=== PATIENT | male | born 1950 | race African-American/Black ===

== ENCOUNTER 2017-02-12 07:49 | Day surgery (SDC) | payer OTHER ==
[2017-02-11 15:07] VITALS: BMI 33.0
[2017-02-12] MEDS ORDERED: LIDOCAINE HCL/PF 2% SDV 5ML VIAL ONE (08:28)
[2017-02-12] MEDS ORDERED: PROPOFOL 20 ML ONE ×3 (08:28)
[2017-02-12 09:00] VITALS: TEMP 98
[2017-02-12 10:08] VITALS: BP 132/75; PULSE 70
== END 2017-02-12 09:50 | disposition home or self-care (01) ==
LOC: JASU-ENDO 07:49
PROVIDERS: ATTEND Internal Medicine Gastroenterology
PROC: 0DJD8ZZ Inspection of Lower Intestinal Tract, Via Natural or Artificial Opening Endoscopic (ICD-10-PCS; principal; 2017-02-12 09:00)
DX: Z12.11 Encounter for screening for malignant neoplasm of colon (principal); Z86.010 Personal history of colon polyps; K57.30 Diverticulosis of large intestine without perforation or abscess without bleeding

== ENCOUNTER → 2017-03-22 | Day surgery (SDC) | payer OTHER ==
[~2017-03-22] MED LIST: BUPIVACAINE HCL/PF 0.5% (5MG/ML) 10 ML VIAL NR ONE
[2017-03-22 10:53] LABS: BASOPHIL 0.7 % (0-2.0); EOSINOPHIL 3.2 % (0-4.5); MCH 33.6 pg (25.7-33.7); MEAN CELL VOLUME 101.9 fl (80-96); MEAN PLT VOLUME 8.8 fl (7.5-11.1); PLATELET COUNT 197 K/MM3 (134-434); RDW 13.6 % (11.9-15.9); WHITE BLOOD COUNT 8.7 K/mm3 (4.0-10.0)
[2017-03-22 11:07] LABS: INR 1.03 (0.82-1.09); PROTHROMBIN TIME (PATIENT) 11.3 SEC (9.98-11.88)
[2017-03-22 12:10] LABS: ERYTHROCYTE SEDIMENTATION RATE 50 mm/hr (0-20)
== END | disposition home or self-care (01) ==
LOC: JRADIR 10:09
PROVIDERS: ATTEND Orthopaedic Surgery
PROC: 0S993ZZ Drainage of Right Hip Joint, Percutaneous Approach (ICD-10-PCS; principal; 2017-03-22)
DX: M25.551 Pain in right hip (principal)
CPT/HCPCS: 27093; 36415; 73502-TC-RT; 73525-TC; 76000-TC; 85025; 85610; 85651; 86140

== ENCOUNTER → 2017-04-02 | Day surgery (SDC) | payer OTHER | END | disposition home or self-care (01) | LOC: JRADIR 09:32 | PROVIDERS: ATTEND Orthopaedic Surgery | PROC: 0S993ZZ Drainage of Right Hip Joint, Percutaneous Approach (ICD-10-PCS; principal; 2017-04-02) | PROC: BW111ZZ Fluoroscopy of Abdomen and Pelvis using Low Osmolar Contrast (ICD-10-PCS; 2017-04-02) | DX: M25.551 Pain in right hip (principal); Z96.641 Presence of right artificial hip joint | CPT/HCPCS: 20610; 76000-TC; 76098-TC; 87070; 87075; 87205; 87899 ==

== ENCOUNTER 2017-09-26 18:15 | Inpatient (IN) | payer OTHER ==
--- NOTE | 2017-09-26 18:30 | PDOC ---
Rapid Medical Evaluation Time Seen by Provider: 09/26/17 18:24 Medical Evaluation: Allergies Allergy/AdvReac Type Severity Reaction Status Date / Time quinapril HCl [From Accupril] Allergy Intermediate Verified 09/26/17 18:24 09/26/17 18:28 The patient presents with a chief complaint of: vomiting blood, dark stools, daily rum drinker, denies varices, ulcer, feels weak and dizzy I have performed a brief in-person evaluation of this patient. Pertinent physical exam findings: bp 101/57 I have ordered the following: cbc, comp, type and screen, pt/inr, guiac stool, iv , ekg, ivf The patient will proceed to the ED for further evaluation. Discharge Disposition - Diagnosis Dark stools Vomiting blood Qualifiers: Nausea presence: with nausea Qualified Code(s): K92.0 - Hematemesis - Discharge Dispostion Condition at time of disposition: Guarded - Referrals - Patient Instructions - Post Discharge Activity
[2017-09-26] MEDS ORDERED: PANTOPRAZOLE SODIUM 40 MG in SODIUM CHLORIDE 100 ML IVPB ONE (18:31)
[2017-09-26] MEDS ORDERED: SODIUM CHLORIDE 1,000 ML IV STA (18:31)
[2017-09-26 18:52] LABS: BASOPHIL 0.7 % (0-2.0); EOSINOPHIL 0.4 % (0-4.5); MCH 30.3 pg (25.7-33.7); MCHC 32.7 g/dl (32.0-35.9); MEAN CELL VOLUME 92.6 fl (80-96); MEAN PLT VOLUME 8.1 fl (7.5-11.1); PLATELET COUNT 224 K/MM3 (134-434); RDW 17.9 % (11.9-15.9); WHITE BLOOD COUNT 10.7 K/mm3 (4.0-10.0)
[2017-09-26 19:10] LABS: INR 1.05 (0.82-1.09); PROTHROMBIN TIME (PATIENT) 11.9 SEC (9.98-11.88)
[2017-09-26 19:20] LABS: ALBUMIN 3.4 g/dl (3.4-5.0); ANION GAP 8 (8-16); BILIRUBIN,TOTAL 0.3 mg/dL (0.2-1.0); CALCIUM 8.8 mg/dL (8.5-10.1); CO2 24 mmol/L (21-32); CREATININE 1.4 mg/dL (0.7-1.3); GLUCOSE,RANDOM 116 mg/dL (74-106); SGOT/AST 65 U/L (15-37); SGPT/ALT 37 U/L (12-78); TOT PROT 6.8 g/dl (6.4-8.2)
[2017-09-26 19:21] LABS: ALK PHOS 137 U/L (45-117)
--- NOTE | 2017-09-26 19:38 | PDOC ---
History of Present Illness - General History Source: Patient Exam Limitations: No Limitations - History of Present Illness Initial Comments: 09/26/17 19:53 The patient is a 67 year old male with history of hypertension, hyperlipidemia, HIV (undetectable VL), GERD, on ASA and Plavix, and daily alcohol consumption ( reports 2 drinks/day) who presents to the ED complaining of nausea, abdominal discomfort, melena, and bright red hematemesis that began this evening. He also reports associated lightheadedness. He states he was feeling fine this evening at work when he suddenly developed his symptoms. No chest pain or shortness of breath. No fever or chills. He has never experienced this before. The patient reports he is currently taking part of a clinical trial for Rapatha for his hyperlipidemia. PCP: Dr. Yeung ID: Dr. Laboy <Gail Malin - Last Filed: 09/26/17 21:51> <Iwona Markham - Last Filed: 09/26/17 21:53> - General Chief Complaint: Vomiting Blood Stated Complaint: NAUSEA/VOMITING Time Seen by Provider: 09/26/17 18:24 Past History <Gail Malin - Last Filed: 09/26/17 21:51> - Past Medical History Cardiac Disorders: Yes (ASHD,ME) COPD: No GI Disorders: Yes (GERD;COLON ADENOMAS;DIVERTICULOSIS) HTN: Yes Hypercholesterolemia: Yes Kidney Stones: Yes Liver Disease: (STAGE 1 STATOHEPATITIS ALCOHOLIC / ABDULLAHI 2007) - Surgical History Abdominal Surgery: (UMBILICAL HERNIA REPAIR) Appendectomy: Yes (LAP) Cardiac Surgery: Yes (7 CABG 2007;STENT 2001) Orthopedic Surgery: Yes (qasim knee replacements; RIGHT HIP REPLACEMENT) - Immunization History Immunization Up to Date: Yes - Suicide/Smoking/Psychosocial Hx Smoking Status: No Smoking History: Former smoker Have you smoked in the past 12 months: No Number of Cigarettes Smoked Daily: 0 If you are a former smoker, when did you quit?: 10yrs Information on smoking cessation initiated: No Hx Alcohol Use: No Drug/Substance Use Hx: No Substance Use Type: None Hx Substance Use Treatment: No <Iwona Markham - Last Filed: 09/26/17 21:53> - Past Medical History Allergies/Adverse Reactions: Allergies Allergy/AdvReac Type Severity Reaction Status Date / Time quinapril HCl [From Accupril] Allergy Intermediate Verified 09/26/17 18:26 Home Medications: Ambulatory Orders Amlodipine Besylate [Norvasc -] 5 mg PO DAILY #0 tablet 05/29/13 Aspirin [ASA -] 81 mg PO HS #0 tab.chew 05/29/13 Clopidogrel Bisulfate [Plavix -] 75 mg PO DAILY 06/27/14 Abacavir/Dolutegravir/Lamivudi [Triumeq Tablet] 1 each PO DAILY 02/11/17 Allopurinol [Zyloprim -] 100 mg PO DAILY 02/11/17 Escitalopram Oxalate [Lexapro -] 10 mg PO DAILY 02/11/17 Furosemide [Lasix -] 80 mg PO DAILY 02/11/17 Gabapentin 300 mg PO BID 02/11/17 Olmesartan Medoxomil [Benicar -] 40 mg PO DAILY 02/11/17 Pitavastatin Calcium [Livalo] 1 mg PO DAILY 02/11/17 Potassium Chloride 8 meq PO DAILY 02/11/17 Ranitidine [Zantac -] 150 mg PO BID 02/11/17 Triamcinolone Acetonide 1 applic TP DAILY 02/11/17 Garlic [Odorless Garlic] 300 mg PO DAILY 02/12/17 Review of Systems - Review of Systems Able to Perform ROS?: Yes Comments:: 09/26/17 20:52 GENERAL/CONSTITUTIONAL: No fever or chills. No weakness. HEAD, EYES, EARS, NOSE AND THROAT: No change in vision. No ear pain or discharge. No sore throat. GASTROINTESTINAL: +Nausea, hematemesis x 5, melena, epigastric discomfort. No diarrhea. GENITOURINARY: No dysuria, frequency, or change in urination. CARDIOVASCULAR: +lightheadedness. No chest pain or shortness of breath. RESPIRATORY: No cough, wheezing, or hemoptysis. MUSCULOSKELETAL: No joint or muscle swelling or pain. No neck or back pain. SKIN: No rash NEUROLOGIC: No vertigo, loss of consciousness, or change in strength/sensation. ENDOCRINE: No increased thirst. No abnormal weight change. HEMATOLOGIC/LYMPHATIC: No anemia, easy bleeding, or history of blood clots. ALLERGIC/IMMUNOLOGIC: No hives or skin allergy. <Gail Malin - Last Filed: 09/26/17 21:51> *Physical Exam - Vital Signs Last Vital Signs Temp Pulse Resp BP Pulse Ox 97.5 F L 88 17 101/57 99 09/26/17 18:27 09/26/17 18:27 09/26/17 18:27 09/26/17 18:27 09/26/17 18:27 - Physical Exam Comments: 09/26/17 20:54 Constitutional: Awake, alert, oriented. No acute distress. Head: Normocephalic. Atraumatic Eyes: PERRL. EOMI. Conjunctivae are not pale. ENT: Mucous membranes are moist and intact. Posterior pharynx without exudates or erythema. Uvula midline. Neck: Supple. Full ROM. No lymphadenopathy. Cardiovascular: Regular rate. Regular rhythm. S1, S2 regular. Distal pulses are 2+ and symmetric. Pulmonary/Chest: No evidence of respiratory distress. Clear to auscultation bilaterally No wheezing, rales or rhonchi. Abdominal: +Mild epigastric tenderness. Soft and non-distended. No rebound, guarding or rigidity. No organomegaly. No palpable masses. Good bowel sounds. Back: No CVA tenderness. Musculoskeletal: No edema. No cyanosis. No clubbing. Full range of motion in all extremities. No calf tenderness. Radial/pedal pulses are intact and 2+ bilaterally Skin: Skin is warm and dry. No petechiae. No purpura. Neurological: Alert and oriented to person, place, and time. Cranial nerves II -XII are grossly intact. Normal speech. Strength is grossly symmetric. No sensory deficits. Psychiatric: Good eye contact. Normal interaction, affect and behavior. Rectal: No hemorrhoids or tears. Dark stool which is heme positive. <Gail Malin - Last Filed: 09/26/17 21:51> - Vital Signs Last Vital Signs Temp Pulse Resp BP Pulse Ox 97.5 F L 88 17 101/57 99 09/26/17 18:27 09/26/17 18:27 09/26/17 18:27 09/26/17 18:27 09/26/17 18:27 <Iwona Markham - Last Filed: 09/26/17 21:53> Heart Score/ECG Review - ECG Intrepretation Comment:: 09/26/17 21:47 sinus at 82, L axis, no acute st/t wave findings <Iwona Markham - Last Filed: 09/26/17 21:53> ED Treatment Course - LABORATORY CBC & Chemistry Diagram: 09/26/17 18:38 09/26/17 18:38 - ADDITIONAL ORDERS Additional order review: Laboratory Results 09/26/17 09/26/17 18:38 18:38 PT with INR 11.90 H INR 1.05 Sodium 143 Potassium 5.1 D Chloride 111 H Carbon Dioxide 24 Anion Gap 8 BUN 32 H D Creatinine 1.4 H D Creat Clearance w eGFR 50.40 Random Glucose 116 H Calcium 8.8 Total Bilirubin 0.3 D AST 65 H ALT 37 Alkaline Phosphatase 137 H D Total Protein 6.8 Albumin 3.4 D 09/26/17 18:38 RBC 3.87 L MCV 92.6 MCHC 32.7 RDW 17.9 H D MPV 8.1 Neutrophils % 79.0 D Lymphocytes % 12.6 D Monocytes % 7.3 Eosinophils % 0.4 D Basophils % 0.7 <Gail Malin - Last Filed: 09/26/17 21:51> - LABORATORY CBC & Chemistry Diagram: 09/26/17 18:38 09/26/17 18:38 - ADDITIONAL ORDERS Additional order review: Laboratory Results 09/26/17 18:38 Sodium 143 Potassium 5.1 D Chloride 111 H Carbon Dioxide 24 Anion Gap 8 BUN 32 H D Creatinine 1.4 H D Creat Clearance w eGFR 50.40 Random Glucose 116 H Calcium 8.8 Total Bilirubin 0.3 D AST 65 H ALT 37 Alkaline Phosphatase 137 H D Total Protein 6.8 Albumin 3.4 D 09/26/17 18:38 RBC 3.87 L MCV 92.6 MCHC 32.7 RDW 17.9 H D MPV 8.1 Neutrophils % 79.0 D Lymphocytes % 12.6 D Monocytes % 7.3 Eosinophils % 0.4 D Basophils % 0.7 <Iwona Markham - Last Filed: 09/26/17 21:53> Medical Decision Making - Medical Decision Making 09/26/17 21:10 a/p: 67yo male with UGIB -labs -type and screen -2 large bore iv -heme +stool -will start protonix 09/26/17 21:26 hgb stable, but down 2g from baseline concern given GI bleeding pt is in a clinical trial at [facility] and getting an IM injection, but unsure which medication call placed to the nurse of the clinical trial at [phone], left message 09/26/17 21:35 case discussed with clinical trial nurse, pt is getting repatha injections 09/26/17 21:47 case discussed with Smitha ROMERO who accepts pt to service. <Iwona Markham - Last Filed: 09/26/17 21:53> *DC/Admit/Observation/Transfer - Attestations Scribe Attestion: 09/26/17 20:40 Documentation prepared by Gail Malin, acting as medical assisting program director for Iwona Markham DO. <Gail Malin - Last Filed: 09/26/17 21:51> - Discharge Dispostion Admit: Yes - Attestations Physician Attestion: 09/26/17 21:53 I, Dr. Iwona Markham DO, attest that this document has been prepared under my direction and personally reviewed by me in its entirety. I further attest, that it accurately reflects all work, treatment, procedures and medical decision -making performed by me. <Iwona Markham - Last Filed: 09/26/17 21:53> Diagnosis at time of Disposition: Dark stools, Vomiting blood - Discharge Dispostion Condition at time of disposition: Guarded - Referrals Referrals: Jose Yeung MD [Primary Care Provider] - - Patient Instructions - Post Discharge Activity
[2017-09-26] MEDS ORDERED: PANTOPRAZOLE SODIUM 40 MG/100 ML BAG IVPB ONE (19:43)
[2017-09-26] MEDS ORDERED: ONDANSETRON 4 MG/2 ML VIAL IVPUSH ONE (19:49)
[2017-09-26] MEDS ORDERED: SODIUM CHLORIDE 0.9% 1000 ML INFUS.BAG IV ONE (21:42)
[2017-09-26] MEDS ORDERED: MAGNESIUM SULF 50% (8.12 MEQ/2 ML-1 GM VIAL) IVPB ONE (22:14)
--- NOTE | 2017-09-26 23:01 | HP ---
CHIEF COMPLAINT: vomiting blood PCP: Gamal HISTORY OF PRESENT ILLNESS: This is 67 year old male with a past medical history as below on ASA, plavix and celebrex, daily alcohol drinker, who presented to the ED after one episode vomiting bright red blood. Pt states that he began to feel unwell: nauseas, lightheaded while driving to work and then he vomited shortly after arriving to work. He describes the episode as prolonged, "it just kept coming," and states that it was bright red. Pt reports shortly after that he felt like he had to have a BM and he had a loose black stool. He also reports that his usual daily stool earlier in the day was black. He states that yesterday it was normal. He notices that he has not had a good appetite for the past few days and has been getting SOB with walking. He denies CP, palpitations, orthopnea. ER course was notable for: (1) Hgb 11.7 (2) BUN/Cr 32/1.4 (3) lactic acid 2.3 Recent Travel: pt denies PAST MEDICAL HISTORY: HTN, HLD, CAD/IA, HIV, GERD, cholelithiasis, colon adenoma, diverticulosis, fatty liver, renal calculi, BPH, gout PAST SURGICAL HISTORY: CABG, 7v, 2008 stents 2002 B/L TKR R THR umbilical hernia repair appendectomy Social History: works as a teen counselor Smoking: pt denies, quit 10y ago Alcohol: daily 2-3 drinks Drugs: pt denies Family History: mother age 67, emphesema, had heart disease, denies IA father 60s, ETOH sister with polio 8 siblings, all with DM/HLD one brother , drug OD Allergies quinapril HCl [From Accupril] Allergy (Intermediate, Verified 09/26/17 18:26) nosebleeds HOME MEDICATIONS: 3 Medication Instructions Recorded Amlodipine Besylate [Norvasc -] 5 mg PO DAILY #0 tablet 05/29/13 Aspirin [ASA -] 81 mg PO HS #0 tab.chew 05/29/13 Clopidogrel Bisulfate [Plavix -] 75 mg PO DAILY 06/27/14 Abacavir/Dolutegravir/Lamivudi 1 each PO DAILY 02/11/17 [Triumeq Tablet] Allopurinol [Zyloprim -] 100 mg PO DAILY 02/11/17 Escitalopram Oxalate [Lexapro -] 10 mg PO DAILY 02/11/17 Furosemide [Lasix -] 40 mg PO Q2D 02/11/17 Gabapentin 300 mg PO BID 02/11/17 Olmesartan Medoxomil [Benicar -] 40 mg PO DAILY 02/11/17 Pitavastatin Calcium [Livalo] 1 mg PO DAILY 02/11/17 Ranitidine [Zantac -] 150 mg PO DAILY 02/11/17 Triamcinolone Acetonide 1 applic TP DAILY 02/11/17 Celecoxib [Celebrex] 200 mg PO DAILY 09/26/17 Furosemide [Lasix -] 20 mg PO Q2D 09/26/17 Metoprolol Succinate [Toprol Xl -] 25 mg PO HS 09/26/17 Tamsulosin HCl [Flomax] 0.4 mg PO DAILY 09/26/17 REVIEW OF SYSTEMS CONSTITUTIONAL: Present: generalized weakness Absent: fever, chills, diaphoresis, malaise, loss of appetite, weight change HEENT: Absent: rhinorrhea, nasal congestion, throat pain, throat swelling, difficulty swallowing, mouth swelling, ear pain, eye pain, visual changes CARDIOVASCULAR: Absent: chest pain, syncope, palpitations, irregular heart rate, lightheadedness , peripheral edema RESPIRATORY: Present: dyspnea with exertion Absent: cough, shortness of breath, orthopnea, wheezing, stridor, hemoptysis GASTROINTESTINAL: Present: nausea, vomiting, melena Absent: abdominal pain, abdominal distension, diarrhea, constipation, hematochezia GENITOURINARY: Absent: dysuria, frequency, urgency, hesitancy, hematuria, flank pain, genital pain MUSCULOSKELETAL: Absent: myalgia, arthralgia, joint swelling, back pain, neck pain SKIN: Absent: rash, itching, pallor HEMATOLOGIC/IMMUNOLOGIC: Absent: easy bleeding, easy bruising, lymphadenopathy, frequent infections ENDOCRINE: Absent: unexplained weight gain, unexplained weight loss, heat intolerance, cold intolerance NEUROLOGIC: Absent: headache, focal weakness or paresthesias, dizziness, unsteady gait, seizure, mental status changes, bladder or bowel incontinence PSYCHIATRIC: Absent: anxiety, depression, suicidal or homicidal ideation, hallucinations. PHYSICAL EXAMINATION Vital Signs - 24 hr 3 09/26/17 09/26/17 18:27 22:18 Temperature 97.5 F L Pulse Rate 88 Pulse Rate [ 78 Sitting] Pulse Rate [ 86 Standing] Pulse Rate [ 66 Supine] Respiratory 17 Rate Blood Pressure 101/57 Blood Pressure 139/97 [Sitting] Blood Pressure 144/81 [Standing] Blood Pressure 149/75 [Supine] O2 Sat by Pulse 99 Oximetry (%) GENERAL: Awake, alert, and fully oriented, in no acute distress. HEAD: Normal with no signs of trauma. EYES: Pupils equal, round and reactive to light, extraocular movements intact, sclera anicteric, conjunctiva clear. No lid lag. EARS, NOSE, THROAT: Ears normal, nares patent, oropharynx clear without exudates. Moist mucous membranes. NECK: Normal range of motion, supple without lymphadenopathy, JVD, or masses. LUNGS: Breath sounds equal, fine bibasilar crackles noted. No wheezes. No accessory muscle use. HEART: Regular rate and rhythm, normal S1 and S2 without murmur, rub or gallop. ABDOMEN: Soft, tender on deep palpation LLQ, not distended, normoactive bowel sounds, no guarding, no rebound, no masses. No hepatomegaly or splenomegaly. MUSCULOSKELETAL: Normal range of motion at all joints. No bony deformities or tenderness. No CVA tenderness. UPPER EXTREMITIES: 2+ pulses, warm, well-perfused. No cyanosis. No clubbing. No peripheral edema. LOWER EXTREMITIES: 2+ pulses, warm, well-perfused. No calf tenderness. No peripheral edema. NEUROLOGICAL: Cranial nerves II-XII intact. Normal speech. Normal gait. PSYCHIATRIC: Cooperative. Good eye contact. Appropriate mood and affect. SKIN: Warm, dry, normal turgor, no rashes or lesions noted, normal capillary refill. Laboratory Results - last 24 hr 3 09/26/17 09/26/17 09/26/17 09/26/17 09/26/17 18:38 18:38 18:38 19:49 21:00 WBC 10.7 H RBC 3.87 L Hgb 11.7 D Hct 35.9 MCV 92.6 MCH 30.3 MCHC 32.7 RDW 17.9 H D Plt Count 224 MPV 8.1 Neutrophils % 79.0 D Lymphocytes % 12.6 D Monocytes % 7.3 Eosinophils % 0.4 D Basophils % 0.7 PT with INR 11.90 H INR 1.05 Sodium 143 Potassium 5.1 D Chloride 111 H Carbon Dioxide 24 Anion Gap 8 BUN 32 H D Creatinine 1.4 H D Creat Clearance w eGFR 50.40 Random Glucose 116 H Lactic Acid 2.3 H* Calcium 8.8 Magnesium 1.6 L Total Bilirubin 0.3 D AST 65 H ALT 37 Alkaline Phosphatase 137 H D Total Protein 6.8 Albumin 3.4 D Stool Occult Blood Positive Blood Type A POSITIVE Antibody Screen Negative ECG NSR Vent rate 82, QTC 441 nonspecific T wave abnormality, present on old ECG Left axis deviation, present on old ECG ASSESSMENT/PLAN: 67yM with PMH HTN, HLD, CAD/IA, HIV, GERD, cholelithiasis, colon adenoma, diverticulosis, fatty liver, renal calculi, BPH, gout presented to the ED after one episode vomiting blood and 2 episodes melena. GI bleed - NPO except meds - repeat CBC after 2nd liter IVF - GI consult - transfuse if symptomatic and Hgb less than 9 given cardiac history - defer further IVF for now unless further episodes hematemesis - protonix 40mg IV BID CAD - will hold ASA/Plavix given active bleeding - cardiology consult HTN - hold tonight toprol dose, restart home meds in am, hold if SBP less than 100 HLD - home statin changed to formulary lipitor - pt is in a clinical trial for HLD, taking repatha SC, ED discussed current symptoms with study nurse who does not feel this is related to study drug HIV - cont home meds DVT PPX - deferred due to active bleeding FEN - hold further IVF for now, received 2L in ED - BMP in am - NPO Dispo: Pt currently requires further observation for management of his emergent condition. Addendum 09/27/17 3am: repeat CBC with HGB 8.2, given cardiac history will transfuse 1u and repeat CBC after completes. Visit type - Emergency Visit Emergency Visit: Yes ED Registration Date: 09/26/17 Care time: The patient presented to the Emergency Department on the above date and was hospitalized for further evaluation of their emergent condition. - New Patient This patient is new to me today: Yes Date on this admission: 09/26/17 - Critical Care Critical Care patient: No
[2017-09-26] MEDS ORDERED: ONDANSETRON 4 MG/2 ML VIAL IVPUSH PRN (23:06)
[2017-09-27] MEDS ORDERED: MAGNESIUM SULF 50% (8.12 MEQ/2 ML-1 GM VIAL) ONE (00:03)
[2017-09-27 01:43] LABS: BASOPHIL 0.7 % (0-2.0); EOSINOPHIL 0.6 % (0-4.5); MCH 30.3 pg (25.7-33.7); MCHC 32.5 g/dl (32.0-35.9); MEAN CELL VOLUME 93.1 fl (80-96); MEAN PLT VOLUME 8.5 fl (7.5-11.1); NEUTROPHILS 65.5 % (42.8-82.8); PLATELET COUNT 152 K/MM3 (134-434); RDW 17.5 % (11.9-15.9); WHITE BLOOD COUNT 8.4 K/mm3 (4.0-10.0)
[2017-09-27 08:01] VITALS: BMI 32.1
[2017-09-27] MEDS: VALSARTAN 160 MG TABLET (UD) PO SCH (09:56)
[2017-09-27] MEDS: ALLOPURINOL 100 MG TABLET (FP) PO SCH (09:57)
[2017-09-27] MEDS: amLODIPine BESYLATE 5 MG TABLET (FP) PO SCH (09:57)
[2017-09-27] MEDS ORDERED: FUROSEMIDE 40 MG TABLET (FP) PO SCH (10:00)
--- NOTE | 2017-09-27 10:24 | EKG ---
Test Reason : Blood Pressure : / mmHG Vent. Rate : 082 BPM Atrial Rate : 082 BPM P-R Int : 174 ms QRS Dur : 090 ms QT Int : 378 ms P-R-T Axes : 033 -33 -05 degrees QTc Int : 441 ms NORMAL SINUS RHYTHM LEFT AXIS DEVIATION T WAVE ABNORMALITY, CONSIDER ANTERIOR ISCHEMIA ABNORMAL ECG Confirmed by MD JESSIE, JOSIAH ([id number]) on 09/27/2017 10:24:06 AM Referred By: Confirmed By:JOSIAH ROMAN MD
--- NOTE | 2017-09-27 10:58 | PN ---
Progress Note, Physician Chief Complaint: Mr Dickens says he feels much better now and is without complaint. No cp, sob, n /v. No current hematemesis. - Current Medication List Current Medications: Active Medications Allopurinol (Zyloprim -) 100 mg PO DAILY [facility] Last Admin: 09/27/17 09:57 Dose: 100 mg Amlodipine Besylate (Norvasc -) 5 mg PO DAILY [facility] Last Admin: 09/27/17 09:57 Dose: 5 mg Atorvastatin Calcium (Lipitor -) 10 mg PO HS MARGOTH Furosemide (Lasix -) 20 mg PO Q2D MARGOTH Furosemide (Lasix -) 40 mg PO Q2D [facility] Last Admin: 09/27/17 09:57 Dose: 40 mg Gabapentin (Neurontin -) 300 mg PO BID MARGOTH Metoprolol Succinate (Toprol Xl -) 25 mg PO HS [facility] Non-Formulary Medication (Abacavir/Dolutegravir/Lamivudi [Triumeq Tablet]) 1 each PO DAILY [facility] Last Admin: 09/27/17 09:56 Dose: 1 each Ondansetron HCl (Zofran Injection) 4 mg IVPUSH Q6H PRN PRN Reason: NAUSEA Tamsulosin HCl (Flomax -) 0.4 mg PO DAILY [facility] Valsartan (Diovan -) 320 mg PO DAILY [facility] Last Admin: 09/27/17 09:56 Dose: 320 mg - Objective Vital Signs: Vital Signs Temperature 36.9 C 09/27/17 06:00 Pulse Rate 68 09/27/17 06:00 Respiratory Rate 18 09/27/17 06:00 Blood Pressure 147/78 09/27/17 06:00 O2 Sat by Pulse Oximetry (%) 98 09/27/17 02:05 Constitutional: Yes: Well Nourished, No Distress, Calm Cardiovascular: Yes: Regular Rate and Rhythm. No: Gallop, Murmur, Rub Respiratory: Yes: Regular, CTA Bilaterally. No: Rales, Rhonchi, Wheezes Gastrointestinal: Yes: Normal Bowel Sounds, Soft. No: Distention, Tenderness Extremities: Yes: WNL Edema: No Labs: INR, PTT INR 1.05 (0.82-1.09) 09/26/17 18:38 Problem List - Problems (1) Hematemesis/vomiting blood Assessment/Plan: -patient presents with hematemesis -currently resolved -concerning since with alcohol consumption -case d/w GI -planning for endoscopy today -continue PPI and octreotide Code(s): K92.0 - HEMATEMESIS Qualifiers: Nausea presence: with nausea Qualified Code(s): K92.0 - Hematemesis (2) ARF (acute renal failure) Assessment/Plan: -improved with IVF and transfusion of 1 unit pRBCs Code(s): N17.9 - ACUTE KIDNEY FAILURE, UNSPECIFIED (3) Hyperlipidemia Assessment/Plan: -continue statin Code(s): E78.5 - HYPERLIPIDEMIA, UNSPECIFIED (4) Hypertension Assessment/Plan: -continue norvasc, toprol, and ARB -holding lasix Code(s): I10 - ESSENTIAL (PRIMARY) HYPERTENSION (5) HIV (human immunodeficiency virus infection) Assessment/Plan: -continue triple therapy Code(s): Z21 - ASYMPTOMATIC HUMAN IMMUNODEFICIENCY VIRUS INFECTION STATUS (6) CAD (coronary artery disease) Assessment/Plan: -cardiology following and case discussed -ok to go to aspirin only -continue ARB, beta aniceto, and statin -quiescent Code(s): I25.10 - ATHSCL HEART DISEASE OF [place] CORONARY ARTERY W/O ANG PCTRS
[2017-09-27 11:20] LABS: ALBUMIN 3.2 g/dl (3.4-5.0); ALK PHOS 119 U/L (45-117); ANION GAP 8 (8-16); BILIRUBIN,TOTAL 0.6 mg/dL (0.2-1.0); CALCIUM 8.3 mg/dL (8.5-10.1); CO2 25 mmol/L (21-32); CREATININE 1.1 mg/dL (0.7-1.3); GLUCOSE,RANDOM 96 mg/dL (74-106); MAGNESIUM 2.1 mg/dL (1.8-2.4); PHOSPHOROUS 2.6 mg/dL (2.5-4.9); SGOT/AST 53 U/L (15-37); SGPT/ALT 30 U/L (12-78); TOT PROT 6.2 g/dl (6.4-8.2)
--- NOTE | 2017-09-27 11:23 | CON.GI ---
Consult Consult Specialty:: GI Dr. Wick for Dr. Beltran Referred by:: Dr. Ellington Reason for Consultation:: Hematemesis - History of Present Illness Chief Complaint: "I threw up blood" History of Present Illness: 67[address] [facility] for evaluation of vomiting blood. Mr. Dickens states being in [facility] up until yesterday afternoon. on his way to work at around 4:30 he began feeling lightheaded. When he arrived at work he had 2 large black BM's , the first formed, the second was loose. He then vomited bright red blood. He could not recall if there were clots as well. This prompted him to seek evaluation at the ER. In the ER, triage vitals revealed P: 78 BP: 139/97 and was not orthostatic. Initial Hgb was 11 and this AM was 8. he received 1 U PRBC. Hgb from 04/06 was 13.3. He was given one dose of Protonix in the ER. Since admission there has been no further hematemesis however he has had continued black BM's, the last being a small amount and a few minutes ago. He denies associated abdominal pain, chest pain, shortness of breath. He did describe weakness and lightheadedness. He denies OTC NSAID use but is maintained on ASA/Plavix for CAD. He believes that his last cardiac stent was 3- 4 years ago and he has a history of CABG He also drinks 2-3 shots of rum nightly for multiple years and denies heavier alcohol use or IVDU in the past. He is followed by Dr. Ayden Beltran in office who last performed colonoscopy on Mr. Dickens 02/04. It was essentially unrevealing aside from a diverticulum. He has never had an upper endoscopy. There is no family history of colorectal cancer or other GI malignancy. He is in a Repatha trial for hyperlipidemia. - Past Medical History Cardio/Vascular: Yes: CAD (S/P CABG, S/P cardiac stents), HTN, Hyperlipdemia, Other (? of PVD/claudication symptoms) Gastrointestinal: Yes: Diverticulosis, Other (Fatty liver, colon polyps) Hepatobiliary: Yes: Cholelithiasis Renal/: Yes: Renal Calculi Infectious Disease: Yes: HIV - Past Surgical History Past Surgical History: Yes: CABG, Joint Replacement (bilateral knees, right hip x 2) Additional Surgical History: Umbilical hernia repair - Alcohol/Substance Use Hx Alcohol Use: Yes (2 drinks daily) - Smoking History Smoking history: Former smoker Have you smoked in the past 12 months: No Aproximately how many cigarettes per day: 0 If you are a former smoker, when did you quit?: 10yrs Home Medications - Allergies Allergies/Adverse Reactions: Allergies Allergy/AdvReac Type Severity Reaction Status Date / Time quinapril HCl [From Accupril] Allergy Intermediate Verified 09/26/17 18:26 - Home Medications Home Medications: Ambulatory Orders Amlodipine Besylate [Norvasc -] 5 mg PO DAILY #0 tablet 05/29/13 Aspirin [ASA -] 81 mg PO HS #0 tab.chew 05/29/13 Clopidogrel Bisulfate [Plavix -] 75 mg PO DAILY 06/27/14 Abacavir/Dolutegravir/Lamivudi [Triumeq Tablet] 1 each PO DAILY 02/11/17 Allopurinol [Zyloprim -] 100 mg PO DAILY 02/11/17 Escitalopram Oxalate [Lexapro -] 10 mg PO DAILY 02/11/17 Furosemide [Lasix -] 20 mg PO DAILY 02/11/17 Gabapentin 300 mg PO BID 02/11/17 Olmesartan Medoxomil [Benicar -] 40 mg PO DAILY 02/11/17 Pitavastatin Calcium [Livalo] 2 mg PO DAILY 02/11/17 Ranitidine [Zantac -] 150 mg PO DAILY 02/11/17 Triamcinolone Acetonide 1 applic TP DAILY 02/11/17 Celecoxib [Celebrex] 200 mg PO DAILY 09/26/17 Metoprolol Succinate [Toprol Xl -] 25 mg PO DAILY 09/26/17 Tamsulosin HCl [Flomax] 0.4 mg PO HS 09/26/17 Family Disease History - Family Disease History Family Disease History: Other: Father ( 70's: Alcoholism), Mother (: 60' s: COPD), Brother (5, 1 : drug abuse), Sister (3: healthy), Son (3 sons, healthy) Other Family History: No family history of colorectal cancer or other GI malignancy Review of Systems - Review of Systems Constitutional: reports: Weakness. denies: Chills, Lethargy, Unintentional Wgt. Loss Cardiovascular: denies: Chest Pain, Shortness of Breath Respiratory: denies: Cough Gastrointestinal: reports: Melena, Nausea, Vomiting Blood. denies: Abdominal Pain, Constipation, Dysphagia, Indigestion, Rectal Bleeding Musculoskeletal: reports: Extremity Pain (b/l LE. Being worked up as an outpatient) Physical Exam-GI Vital Signs: Vital Signs Temperature 98.5 F 09/27/17 11:15 Pulse Rate 68 09/27/17 11:15 Respiratory Rate 18 09/27/17 11:15 Blood Pressure 147/78 09/27/17 11:15 O2 Sat by Pulse Oximetry (%) 98 09/27/17 11:15 Constitutional: Yes: Calm Eyes: No: Sclera Icterus Cardiovascular: Yes: Regular Rate and Rhythm. No: Murmur Respiratory: Yes: CTA Bilaterally Gastrointestinal Inspection: Yes: Hernia (+ incisional hernia just cephalad of umbilicus. Non-tender/reducible), Scars (thoracotomy scar extending to upper abdomen. + umbilical hernia repair scar). No: Distention ...Auscultate: Yes: Normoactive Bowel Sounds ...Palpate: No: Splenomegaly, Tenderness ...Percussion: No: Tympanitic ...Rectal Exam: Yes: Other (+ Melena) Edema: No (No LE edema) Neurological: Yes: Alert, Oriented Labs: CBC, BMP 09/27/17 09:50 Hepatic Panel Total Bilirubin 0.6 mg/dL (0.2-1.0) D 09/27/17 09:50 AST 53 U/L (15-37) H 09/27/17 09:50 ALT 30 U/L (12-78) 09/27/17 09:50 Alkaline Phosphatase 119 U/L (45-117) H 09/27/17 09:50 Albumin 3.2 g/dl (3.4-5.0) L 09/27/17 09:50 CBC, BMP 09/27/17 11:25 09/27/17 09:50 INR, PTT INR 1.05 (0.82-1.09) 09/26/17 18:38 Imaging - Results X-ray: Report Reviewed Problem List - Problems (1) Hematemesis/vomiting blood Assessment/Plan: Currently hemodynamically stable without recurrence of hematamesis, however with continued melena In setting of dual antiplatelet therapy / SSRI and daily alcohol use / history of fatty liver, multiple possible etiologies would need to be considered including PUD, bleeding blood vessels, variceal bleed (although liver chemistries, coags and platelet count do not reflect advanced liver disease.) I explained this to Mr. Dickens and discussed upper endoscopy (with possible banding) for further intraluminal evaluation with possible repeat endoscopy for further therapeutics with antiplatelet therapy held for further therapeutics if necessary. We discussed potential risks of the procedure like but not limited to bleeding, perforation requiring surgery to repair, infection, sedation medciation effects all of which could be potentially life threatening. He has agreed to the procedure. Case will be discussed with Dr. Clinton as well For now: NPO Hold ASA/Plavix and continued future use of dual antiplatelet therapy will need to reassessed by cardiology Protonix 40mg IVPB bolus followed by 8mg/hr Octreotide 50mcg bolus followed by 50mcg/hr infusion If continued melena / change in hemodynamics or active vomiting of blood, transfer to ICU, Obtain hematology evaluation and may need transfusion of platelets Monitor H/H. Keep Hgb 8-9 in setting of CAD. Appropriate response to 1 U PRBC Ordered PTT as part of coag profile Code(s): K92.0 - HEMATEMESIS
[2017-09-27 11:26] LABS: BASOPHIL 0.7 % (0-2.0); EOSINOPHIL 2.9 % (0-4.5); MCH 29.7 pg (25.7-33.7); MCHC 32.7 g/dl (32.0-35.9); MEAN CELL VOLUME 90.8 fl (80-96); NEUTROPHILS 56.2 % (42.8-82.8); PLATELET COUNT 182 K/MM3 (134-434); RDW 17.7 % (11.9-15.9); WHITE BLOOD COUNT 9.5 K/mm3 (4.0-10.0)
[2017-09-27] MEDS ORDERED: PANTOPRAZOLE SODIUM 40 MG VIAL IVPUSH STA (12:04)
[2017-09-27] MEDS ORDERED: OCTREOTIDE ACETATE 50 MCG/1 ML - 1 ML VIAL IVPUSH ONE (12:05)
[2017-09-27] MEDS ORDERED: OCTREOTIDE ACETATE 1,200 MCG in DEXTROSE 5%-WATER - 488 ML IVPB SCH (12:15)
--- NOTE | 2017-09-27 12:57 | CON.CARD ---
Cardiology Consult (text) - Consultation Consultation Note: CC: GIB 67 yo with h/o HTN, HLD, CAD/CT s/p cabg (GRAHAM-LAD, SVG-RPDA/RPL, AOH-QQ4-SR2- OM3, SVG-Diag) and prior pci of RPDA and RPL1 (last 2013) on dapt, HIV, etoh use , GERD, cholelithiasis, colon adenoma, diverticulosis, fatty liver, nodular goiter, renal calculi, BPH, gout who p/w hematemesis and melena. nausea, lightheaded while driving to work --> hematemesis. Afterwards had episode of loose black stool. + poor appetite for the past few days. + SOB with walking for past few days. He denies CP, palpitations, orthopnea, pnd, le edema, syncope, transient neurologic sx's. Received transfusion last night. PAST MEDICAL HISTORY: HTN, HLD, CAD/CT, HIV, GERD, cholelithiasis, colon adenoma, diverticulosis, fatty liver, renal calculi, BPH, gout PAST SURGICAL HISTORY: CABG 2008 stents B/L TKR R THR umbilical hernia repair appendectomy Social History: works as a teen counselor Smoking: former, quit 10y ago Alcohol: daily 2-3 cocktails Drugs: pt denies Family History: mother age 67, emphesema, had heart disease, denies CT father 60s, ETOH sister with polio 8 siblings, all with DM/HLD one brother , drug OD ros: per hpi. no cough, congestion, h/a, rashes, visual disturbances. Ambulatory Orders Amlodipine Besylate [Norvasc -] 5 mg PO DAILY #0 tablet 05/29/13 Aspirin [ASA -] 81 mg PO HS #0 tab.chew 05/29/13 Clopidogrel Bisulfate [Plavix -] 75 mg PO DAILY 06/27/14 Abacavir/Dolutegravir/Lamivudi [Triumeq Tablet] 1 each PO DAILY 02/11/17 Allopurinol [Zyloprim -] 100 mg PO DAILY 02/11/17 Escitalopram Oxalate [Lexapro -] 10 mg PO DAILY 02/11/17 Furosemide [Lasix -] 20 mg PO DAILY 02/11/17 Gabapentin 300 mg PO BID 02/11/17 Olmesartan Medoxomil [Benicar -] 40 mg PO DAILY 02/11/17 Pitavastatin Calcium [Livalo] 2 mg PO DAILY 02/11/17 Ranitidine [Zantac -] 150 mg PO DAILY 02/11/17 Triamcinolone Acetonide 1 applic TP DAILY 02/11/17 Celecoxib [Celebrex] 200 mg PO DAILY 09/26/17 Metoprolol Succinate [Toprol Xl -] 25 mg PO DAILY 09/26/17 Tamsulosin HCl [Flomax] 0.4 mg PO HS 09/26/17 Current Medications Allopurinol (Zyloprim -) 100 mg PO DAILY [facility] Last Admin: 09/27/17 09:57 Dose: 100 mg Amlodipine Besylate (Norvasc -) 5 mg PO DAILY [facility] Last Admin: 09/27/17 09:57 Dose: 5 mg Atorvastatin Calcium (Lipitor -) 10 mg PO HS [facility] Furosemide (Lasix -) 20 mg PO Q2D [facility] Furosemide (Lasix -) 40 mg PO Q2D [facility] Last Admin: 09/27/17 09:57 Dose: 40 mg Gabapentin (Neurontin -) 300 mg PO BID [facility] Pantoprazole Sodium 80 mg/ (Sodium Chloride) 100 mls @ 10 mls/hr IVPB Q10H MARGOTH PRN Reason: 8 MG/HR Octreotide Acetate 1,200 mcg/ (Dextrose) 500 mls @ 20.83 mls/hr IVPB Q24H MARGOTH PRN Reason: 50 MCG/HR Metoprolol Succinate (Toprol Xl -) 25 mg PO HS [facility] Non-Formulary Medication (Abacavir/Dolutegravir/Lamivudi [Triumeq Tablet]) 1 each PO DAILY [facility] Last Admin: 09/27/17 09:56 Dose: 1 each Ondansetron HCl (Zofran Injection) 4 mg IVPUSH Q6H PRN PRN Reason: NAUSEA Tamsulosin HCl (Flomax -) 0.4 mg PO DAILY [facility] Valsartan (Diovan -) 320 mg PO DAILY [facility] Last Admin: 09/27/17 09:56 Dose: 320 mg Vital Signs - 24 hr 09/26/17 09/26/17 09/27/17 18:27 22:18 00:18 Temperature 97.5 F L Pulse Rate 88 Pulse Rate [ 67 Apical] Pulse Rate [ 78 Sitting] Pulse Rate [ 86 Standing] Pulse Rate [ 66 Supine] Respiratory 17 19 Rate Blood Pressure 101/57 Blood Pressure 174/87 [Right Arm] Blood Pressure 139/97 [Sitting] Blood Pressure 144/81 [Standing] Blood Pressure 149/75 [Supine] O2 Sat by Pulse 99 100 Oximetry (%) 09/27/17 09/27/17 09/27/17 02:05 06:00 10:00 Temperature 97.5 F L 98.5 F 97.8 F Pulse Rate 75 68 72 Pulse Rate [ Apical] Pulse Rate [ Sitting] Pulse Rate [ Standing] Pulse Rate [ Supine] Respiratory 18 18 18 Rate Blood Pressure 160/81 147/78 146/81 Blood Pressure [Right Arm] Blood Pressure [Sitting] Blood Pressure [Standing] Blood Pressure [Supine] O2 Sat by Pulse 98 98 Oximetry (%) 09/27/17 11:31 Temperature 97.8 F Pulse Rate 75 Pulse Rate [ Apical] Pulse Rate [ Sitting] Pulse Rate [ Standing] Pulse Rate [ Supine] Respiratory 18 Rate Blood Pressure 153/77 Blood Pressure [Right Arm] Blood Pressure [Sitting] Blood Pressure [Standing] Blood Pressure [Supine] O2 Sat by Pulse Oximetry (%) Intake & Output 09/25/17 09/26/17 09/27/17 09/28/17 07:59 07:59 07:59 07:59 Intake Total 350 Balance 350 Weight 237 lb 6.4 oz nad, calm jvd flat, neck supple ctab, nl effort RRR nl s1, s2 no mrg + bs soft nt nd ext without e/c/c + dp/pt no carotid bruits no jaundice, diaphoresis. aaox3 CBC, BMP 09/27/17 11:25 09/27/17 09:50 Laboratory Tests 09/26/17 09/26/17 09/26/17 18:38 19:49 21:00 Hgb INR 1.05 Lactic Acid Magnesium 1.6 L Total Bilirubin AST ALT Alkaline Phosphatase Albumin Stool Occult Blood Positive 09/26/17 09/27/17 09/27/17 23:20 01:27 09:50 Hgb 8.2 L D INR Lactic Acid 1.6 Magnesium 2.1 D Total Bilirubin 0.6 D AST 53 H ALT 30 Alkaline Phosphatase 119 H Albumin 3.2 L Stool Occult Blood ekg: nsr, lad, anterior twi. Similar changes on priors. tele: SR with pac's, short bursts of sinus tachycardia Echo 11/2016: tds. 1+ lve. Nl overall LV fn, with mod HK of inferolat acevedo. inf and lat acevedo not seen. nl rv size/fn. IAS. Last cath 2014: patent stents and grafts at that time. 67 yo with h/o HTN, HLD, CAD/CT s/p cabg (GRAHMA-LAD, SVG-RPDA/RPL, YPQ-TL5-ML1- OM3, SVG-Diag) and prior pci of RPDA and RPL1 (last 2013) on dapt, HIV, etoh use , GERD, cholelithiasis, colon adenoma, diverticulosis, fatty liver, nodular goiter, renal calculi, BPH, gout who p/w hematemesis and melena. GIB - s/p prbc's - for endoscopy today. GI following. - DAPT plan below - stop lasix for now. CAD/CT s/p cabg (GRAHAM-LAD, SVG-RPDA/RPL, XNO-UY2-EU4-OM3, SVG-Diag) and prior pci of RPDA and RPL1 (last 2013) on dapt - has been on long-standing dapt. Will clarify that last pci was in 2013, if so , ok to continue asa monotherapy in the future. - patient with possible new rwma on most recent echo --> evaluated with recent stress test. - con't livalo, toprol. resume asa when stable per gi. PPI per GI. - avoidance of nsaids as outpatient htn - per report, chronic suboptimal control 2/2 med side effects/non-adherence. - con't arb, metoprolol, norvasc. Borderline suboptimal control today, but will not uptitrate regimen until clear that patient will not have further bleeding. - con't to monitor, reevaluate need for uptitration tomorrow. hl - intolerant of multiple statins, now on livalo. Currently enrolled in trial at [facility] [place]. PCSK-9 inhibitor vs. control. - LFT's chronically elevated. etoh - cessation counseling.
[2017-09-27] MEDS: PANTOPRAZOLE SODIUM 80 MG in SODIUM CHLORIDE 100 ML IVPB SCH ×2 (12:59→22:24)
[2017-09-27] MEDS ORDERED: LIDOCAINE HCL 2% 100 MG/5 ML DISP.SYRIN ONE (14:42)
[2017-09-27] MEDS ORDERED: ONDANSETRON 4 MG/2 ML VIAL ONE (14:44)
[2017-09-27] MEDS ORDERED: SUCCINYLCHOLINE CHLORIDE 200 MG/10 ML VIAL ONE (14:44)
[2017-09-27] MEDS ORDERED: MIDAZOLAM HCL 2 MG/2 ML SINGLE DOSE VIAL ONE (14:44)
[2017-09-27] MEDS ORDERED: PROPOFOL 20 ML ONE ×2 (14:44→15:25)
[2017-09-27] MEDS ORDERED: ePHEDrine SULFATE 50 MG/1 ML AMPULE ONE (14:45)
--- NOTE | 2017-09-27 16:07 | PN ---
Progress Note (short form) - Note Progress Note: GI NOte: Please see EGD report. Multiple potential bleeding sites found but the most likely is severe erosive distal esophagitis above a hiatal hernia. I have strongly advised Moe to absolutely stop alcohol intake. Will continue PPI drip and allow clear liquids. I will be covering this weekend.
[2017-09-27] MEDS: MAG HYDROX/AL HYDROX/SIMETH 30 ML UNIT-DOSE CUP PO SCH (17:23)
[2017-09-27] MEDS: ATORVASTATIN CA 10 MG TABLET (FP) PO SCH (22:23)
[2017-09-27] MEDS: GABAPENTIN 300 MG CAPSULE (FP) PO SCH (22:23)
[2017-09-27] MEDS: METOPROLOL SUCCINATE 25 MG TAB.SR.24H (FP) PO SCH (22:23)
[2017-09-28] MEDS: MAG HYDROX/AL HYDROX/SIMETH 30 ML UNIT-DOSE CUP PO SCH ×4 (00:34→17:42)
[2017-09-28 07:56] LABS: BASOPHIL 0.7 % (0-2.0); EOSINOPHIL 4.3 % (0-4.5); MCH 30.1 pg (25.7-33.7); MCHC 32.6 g/dl (32.0-35.9); MEAN CELL VOLUME 92.2 fl (80-96); MEAN PLT VOLUME 8.3 fl (7.5-11.1); NEUTROPHILS 65.5 % (42.8-82.8); PLATELET COUNT 180 K/MM3 (134-434); RDW 17.9 % (11.9-15.9); WHITE BLOOD COUNT 7.9 K/mm3 (4.0-10.0)
[2017-09-28 08:39] LABS: C-REACTIVE PROTEIN 1.5 MG/DL (0.00-0.3)
[2017-09-28 08:40] LABS: ANION GAP 8 (8-16); CALCIUM 8.6 mg/dL (8.5-10.1); CO2 28 mmol/L (21-32); CREATININE 1.4 mg/dL (0.7-1.3); GLUCOSE,RANDOM 133 mg/dL (74-106); MAGNESIUM 2.1 mg/dL (1.8-2.4); PHOSPHOROUS 3.1 mg/dL (2.5-4.9)
[2017-09-28 08:42] LABS: ALBUMIN 3.4 g/dl (3.4-5.0)
[2017-09-28 08:49] LABS: BILIRUBIN,DIRECT 0.2 mg/dL (0.0-0.2); BILIRUBIN,TOTAL 0.7 mg/dL (0.2-1.0); FERRITIN 133.281 ng/ml (16.4-293.9); TOT PROT 6.6 g/dl (6.4-8.2)
[2017-09-28] MEDS: VALSARTAN 160 MG TABLET (UD) PO SCH (09:27)
[2017-09-28] MEDS: ALLOPURINOL 100 MG TABLET (FP) PO SCH (09:27)
[2017-09-28] MEDS: amLODIPine BESYLATE 5 MG TABLET (FP) PO SCH (09:27)
[2017-09-28] MEDS: PANTOPRAZOLE SODIUM 80 MG in SODIUM CHLORIDE 100 ML IVPB SCH (09:27)
[2017-09-28] MEDS: TAMSULOSIN HCL 0.4 MG CAP.ER.24H (FP) PO SCH (09:28)
[2017-09-28] MEDS: GABAPENTIN 300 MG CAPSULE (FP) PO SCH ×3 (09:28→21:10)
[2017-09-28] MEDS ORDERED: FUROSEMIDE 20 MG TABLET (FP) PO SCH (10:00)
[2017-09-28 12:37] LABS: FIBROSURE ASH COMMENT SEE FILE COPY
--- NOTE | 2017-09-28 12:42 | PN ---
Progress Note (short form) - Note Progress Note: Subjective: The patient was seen and examined at the bedside, he has complaints of gas. Instructed the patient to ambulate to relieve gas Current Medications Generic Name Dose Route Start Last Admin Trade Name Freq PRN Reason Stop Dose Admin Al Hydroxide/Mg Hydroxide 30 ml 09/27/17 18:00 09/28/17 06:00 Mylanta Oral Suspension - PO 30 ml Q6HPO MARGOTH Administration Allopurinol 100 mg 09/27/17 10:00 09/28/17 09:27 Zyloprim - PO 100 mg DAILY MARGOTH Administration Amlodipine Besylate 5 mg 09/27/17 10:00 09/28/17 09:27 Norvasc - PO 5 mg DAILY MARGOTH Administration Atorvastatin Calcium 10 mg 09/27/17 22:00 09/27/17 22:23 Lipitor - PO 10 mg HS MARGOTH Administration Gabapentin 300 mg 09/27/17 10:00 09/28/17 09:28 Neurontin - PO 300 mg BID MARGOTH Administration Pantoprazole Sodium 80 mg/ 100 mls @ 10 mls/hr 09/27/17 12:15 09/28/17 09:27 Sodium Chloride IVPB 10 mls/hr Q10H MARGOTH Administration 8 MG/HR Octreotide Acetate 1,200 mcg/ 500 mls @ 20.83 mls/hr 09/27/17 12:15 09/27/17 13:00 Dextrose IVPB 20.83 mls/hr Q24H MARGOTH Administration 50 MCG/HR Metoprolol Succinate 25 mg 09/27/17 22:00 09/27/17 22:23 Toprol Xl - PO 25 mg HS MARGOTH Administration Non-Formulary Medication 1 each 09/27/17 10:00 09/28/17 09:28 Abacavir/Dolutegravir/Lamivudi [Triumeq Tablet] PO 1 each DAILY MARGOTH Administration Ondansetron HCl 4 mg 09/26/17 23:06 Zofran Injection IVPUSH Q6H PRN NAUSEA Tamsulosin HCl 0.4 mg 09/27/17 10:00 09/28/17 09:28 Flomax - PO 0.4 mg DAILY MARGOTH Administration Valsartan 320 mg 09/27/17 10:00 09/28/17 09:27 Diovan - PO 320 mg DAILY MARGOTH Administration Objective: Vital Signs Period Temp Pulse Resp BP Sys/Linares Pulse Ox Last 24 Hr 97.5 F-99.1 F 69-101 16-20 106-158/54-93 98-100 Physical Exam: General: NAD, A&Ox3 Lungs: CTA bilaterally Heart: RRR, S1S2 Abd: Soft, non-tender, non-distended. Normoactive bowel sounds Ext: Warm, well-perfused. 2+ DP/PT bilaterally. No edema Neuro: CN 2-12 intact CBCD WBC 7.9 K/mm3 (4.0-10.0) 09/28/17 05:45 RBC 3.76 M/mm3 (4.00-5.60) L 09/28/17 05:45 Hgb 11.3 GM/dL (11.7-16.9) L 09/28/17 05:45 Hct 34.6 % (35.4-49) L 09/28/17 05:45 MCV 92.2 fl (80-96) 09/28/17 05:45 MCHC 32.6 g/dl (32.0-35.9) 09/28/17 05:45 RDW 17.9 % (11.9-15.9) H 09/28/17 05:45 Plt Count 180 K/MM3 (134-434) 09/28/17 05:45 MPV 8.3 fl (7.5-11.1) 09/28/17 05:45 CMP Sodium 142 mmol/L (136-145) 09/28/17 05:45 Potassium 4.6 mmol/L (3.5-5.1) 09/28/17 05:45 Chloride 106 mmol/L (98-107) 09/28/17 05:45 Carbon Dioxide 28 mmol/L (21-32) 09/28/17 05:45 Anion Gap 8 (8-16) 09/28/17 05:45 BUN 22 mg/dL (7-18) H D 09/28/17 05:45 Creatinine 1.4 mg/dL (0.7-1.3) H D 09/28/17 05:45 Creat Clearance w eGFR > 60 (>60) 09/27/17 09:50 Random Glucose 133 mg/dL (74-106) H D 09/28/17 05:45 Calcium 8.6 mg/dL (8.5-10.1) 09/28/17 05:45 Total Bilirubin 0.7 mg/dL (0.2-1.0) 09/28/17 05:45 AST 210 U/L (15-37) H D 09/28/17 05:45 ALT 61 U/L (12-78) D 09/28/17 05:45 Alkaline Phosphatase 133 U/L (45-117) H 09/28/17 05:45 Total Protein 6.6 g/dl (6.4-8.2) 09/28/17 05:45 Albumin 3.4 g/dl (3.4-5.0) 09/28/17 05:45 Assessment: This is a 67 year old with PMHx of HTN, hyperlipidemia, CAD/VA, HIV , GERD, cholelithiasis, colon adenoma, diverticulosis, fatty liver, renal calculi, BPH, gout, daily alcohol drinker, who presented to the ED with one episode of vomiting bright red blood. Plan: 1) GI: Hematemesis - EGD on 09/27: severe erosive distal esophagitis - Educated on importance of abstaining from alcohol consumption - Continue Protonix gtt - Continue Octreotide - CL diet, advance per GI - Appreciate GI consult 2) : JIGNA - Continue to monitor, did improve, now Cr back up to 1.4 today 3) Cardiology: CAD s/p stenting - Per cardiology ok to continue monotherapy with ASA when cleared from GI standpoint to start - Continue Toprol XL - Continue Lipitor HTN - Continue Norvasc - Continue Diovan HLD - As above 4) HIV - Continue triple therapy 5) F/E/N: - CL diet - Monitor electrolytes 6) Prophylaxis: - Hold all chemical dvt prophylaxis 2/2 GI bleed 7) Dispo: - Requires continued inpatient care CODE STATUS: FULL CODE Visit type - Emergency Visit Emergency Visit: Yes ED Registration Date: 09/27/17 Care time: The patient presented to the Emergency Department on the above date and was hospitalized for further evaluation of their emergent condition. - New Patient This patient is new to me today: Yes Date on this admission: 09/28/17 - Critical Care Critical Care patient: No
--- NOTE | 2017-09-28 14:31 | PN ---
GI Progress Note Subjective: GI NOte: Had only a small volume melena today. Pain free. Does not feel tremulous . LFTs rising which I suspect is alcohol related and which I gain discussed with Moe. I have emphasized the need to absolutely abstain from alcohol and to adopt antireflux measures and take iron replacement. - Objective Vital Signs: Vital Signs Temperature 98.7 F 09/28/17 10:00 Pulse Rate 69 09/28/17 10:00 Respiratory Rate 20 09/28/17 12:00 Blood Pressure 156/80 09/28/17 10:00 O2 Sat by Pulse Oximetry (%) 98 09/28/17 12:00 Laboratory Tests 09/26/17 09/27/17 09/27/17 18:38 01:27 09:50 Hgb 8.2 L D BUN 30 H Creatinine 1.1 D Total Bilirubin Direct Bilirubin AST 65 H 53 H ALT Alkaline Phosphatase Total Amylase Lipase 09/27/17 09/28/17 09/28/17 11:25 05:45 05:45 Hgb 10.9 L D 11.3 L BUN 22 H D Creatinine 1.4 H D Total Bilirubin Direct Bilirubin AST ALT Alkaline Phosphatase Total Amylase Lipase 09/28/17 05:45 Hgb BUN Creatinine Total Bilirubin 0.7 Direct Bilirubin 0.2 D AST 210 H D ALT 61 D Alkaline Phosphatase 133 H Total Amylase 51 Lipase 132 Constitutional: No Distress ...Auscultate: Yes: Normoactive Bowel Sounds ...Palpate: Yes: Soft, Other (nontender) Labs: CBC, BMP 09/28/17 05:45 09/28/17 05:45 INR, PTT INR 1.05 (0.82-1.09) 09/26/17 18:38 Problem List - Problems (1) Hiatal hernia with GERD and esophagitis Assessment/Plan: Discussed need for antireflux measures and PPI and alcohol abstension Code(s): K44.9 - DIAPHRAGMATIC HERNIA WITHOUT OBSTRUCTION OR GANGRENE; K21.0 - GASTRO-ESOPHAGEAL REFLUX DISEASE WITH ESOPHAGITIS (2) Gastrointestinal bleeding, upper Assessment/Plan: Bleeding appears to be resolving. Will switch to oral PPI. Instructed to avoid NSAIDs and alcohol Code(s): K92.2 - GASTROINTESTINAL HEMORRHAGE, UNSPECIFIED (3) Duodenitis Code(s): K29.80 - DUODENITIS WITHOUT BLEEDING (4) Gastritis Assessment/Plan: Will screen stool for H. pylori Code(s): K29.70 - GASTRITIS, UNSPECIFIED, WITHOUT BLEEDING Qualifiers: Gastritis type: alcoholic (5) Alcoholic hepatitis without ascites Assessment/Plan: Will screen for other etiologies of hepatitis an will get abdominal sonogram to exclude ascites, gallstones and hepatoma. Will also get Fibrosure Code(s): K70.10 - ALCOHOLIC HEPATITIS WITHOUT ASCITES
--- NOTE | 2017-09-28 18:17 | PN ---
Progress Note (short form) - Note Progress Note: CC: GIB S: Still with dark stools, although improving in color. had endoscopy yesterday. no cp, palps, sob. one episode of dizziness when walking this am. Current Medications Al Hydroxide/Mg Hydroxide (Mylanta Oral Suspension -) 30 ml PO Q6HPO [facility] Last Admin: 09/28/17 17:42 Dose: 30 ml Allopurinol (Zyloprim -) 100 mg PO DAILY [facility] Last Admin: 09/28/17 09:27 Dose: 100 mg Amlodipine Besylate (Norvasc -) 5 mg PO DAILY [facility] Last Admin: 09/28/17 09:27 Dose: 5 mg Atorvastatin Calcium (Lipitor -) 10 mg PO HS [facility] Last Admin: 09/27/17 22:23 Dose: 10 mg Gabapentin (Neurontin -) 300 mg PO BID [facility] Last Admin: 09/28/17 09:28 Dose: 300 mg Metoprolol Succinate (Toprol Xl -) 25 mg PO HS [facility] Last Admin: 09/27/17 22:23 Dose: 25 mg Non-Formulary Medication (Abacavir/Dolutegravir/Lamivudi [Triumeq Tablet]) 1 each PO DAILY [facility] Last Admin: 09/28/17 09:28 Dose: 1 each Ondansetron HCl (Zofran Injection) 4 mg IVPUSH Q6H PRN PRN Reason: NAUSEA Pantoprazole Sodium (Protonix -) 40 mg PO BID [facility] Tamsulosin HCl (Flomax -) 0.4 mg PO DAILY [facility] Last Admin: 09/28/17 09:28 Dose: 0.4 mg Valsartan (Diovan -) 320 mg PO DAILY [facility] Last Admin: 09/28/17 09:27 Dose: 320 mg Vital Signs - 24 hr 09/27/17 09/27/17 09/28/17 20:33 22:00 02:00 Temperature 98.4 F 98.7 F Pulse Rate 76 72 Respiratory 18 18 20 Rate Blood Pressure 133/80 143/89 O2 Sat by Pulse 98 Oximetry (%) 09/28/17 09/28/17 09/28/17 04:00 05:39 10:00 Temperature 99.1 F 98.7 F Pulse Rate 101 H 69 Respiratory 20 20 20 Rate Blood Pressure 149/93 156/80 O2 Sat by Pulse 98 Oximetry (%) 09/28/17 09/28/17 12:00 14:41 Temperature 98.6 F Pulse Rate 72 Respiratory 20 20 Rate Blood Pressure 127/67 O2 Sat by Pulse 98 Oximetry (%) Intake & Output 09/26/17 09/27/17 09/28/17 09/29/17 07:59 07:59 07:59 07:59 Intake Total 1230 260 Output Total 1000 Balance 230 260 Weight 237 lb 6.4 oz nad, calm jvd flat, neck supple ctab, nl effort RRR nl s1, s2 no mrg + bs soft nt nd ext without e/c/c + dp/pt no carotid bruits no jaundice, diaphoresis. aaox3 CBC, BMP 09/28/17 05:45 09/28/17 05:45 ekg: nsr, lad, anterior twi. Similar changes on priors. tele: SR with pac's, few short bursts of sinus tachycardia vs. svt Echo 11/2016: tds. 1+ lve. Nl overall LV fn, with mod HK of inferolat acevedo. inf and lat acevedo not seen. nl rv size/fn. IAS. Last cath 2014: patent stents and grafts at that time. 67 yo with h/o HTN, HLD, CAD/FL s/p cabg (GRAHAM-LAD, SVG-RPDA/RPL, UAI-ZC1-SU4- OM3, SVG-Diag) and prior pci of RPDA and RPL1 (last 2013) on dapt, HIV, etoh use , GERD, cholelithiasis, colon adenoma, diverticulosis, fatty liver, nodular goiter, renal calculi, BPH, gout who p/w hematemesis and melena. GIB - s/p prbc's - s/p endoscopy 09/27. GI following. Per report, Multiple potential bleeding sites found but the most likely is severe erosive distal esophagitis above a hiatal hernia. - DAPT plan below - holding lasix for now. CAD/FL s/p cabg (GRAHAM-LAD, SVG-RPDA/RPL, ZEU-VW4-LB1-OM3, SVG-Diag) and prior pci of RPDA and RPL1 (last 2013) on dapt - has been on long-standing dapt. Will clarify that last pci was in 2013, if so , ok to continue asa monotherapy in the future. - patient with possible new rwma on most recent echo --> evaluated with recent stress test. - con't livalo, toprol. resume asa when stable per gi. PPI per GI. - avoidance of nsaids as outpatient. htn - per report, chronic suboptimal control 2/2 med side effects/non-adherence. - con't arb, metoprolol, norvasc. - 09/27: Borderline suboptimal control today, but will not uptitrate regimen until clear that patient will not have further bleeding. - 09/28: improved control, con't same regimen. hl - intolerant of multiple statins, now on livalo. Currently enrolled in trial at [facility]. PCSK-9 inhibitor vs. control. - LFT's chronically elevated. etoh - cessation counseling. brief runs of sinus tachycardia/possible svt - consider need to increase toprol dose when clear that patient no longer bleeding.
[2017-09-28] MEDS: METOPROLOL SUCCINATE 25 MG TAB.SR.24H (FP) PO SCH (21:10)
[2017-09-28] MEDS: PANTOPRAZOLE 40 MG TABLET (FP) PO SCH (21:10)
[2017-09-28] MEDS: ATORVASTATIN CA 10 MG TABLET (FP) PO SCH (21:10)
[2017-09-29] MEDS: MAG HYDROX/AL HYDROX/SIMETH 30 ML UNIT-DOSE CUP PO SCH ×4 (00:30→18:31)
[2017-09-29 06:36] LABS: SERUM IRON 113 ug/dL (38-169); TOTAL IRON BINDING CAPACITY 373 ug/dL (250-450); UIBC 260 ug/dL (111-343)
[2017-09-29 07:39] LABS: BASOPHIL 0.4 % (0-2.0); EOSINOPHIL 4.3 % (0-4.5); MCH 30.4 pg (25.7-33.7); MCHC 32.9 g/dl (32.0-35.9); MEAN CELL VOLUME 92.4 fl (80-96); MEAN PLT VOLUME 8.4 fl (7.5-11.1); NEUTROPHILS 59.5 % (42.8-82.8); PLATELET COUNT 169 K/MM3 (134-434); RDW 17.4 % (11.9-15.9); WHITE BLOOD COUNT 7.8 K/mm3 (4.0-10.0)
[2017-09-29 08:11] LABS: ALBUMIN 3.1 g/dl (3.4-5.0); ANION GAP 6 (8-16); BILIRUBIN,TOTAL 0.4 mg/dL (0.2-1.0); CALCIUM 7.8 mg/dL (8.5-10.1); CO2 29 mmol/L (21-32); CREATININE 1.3 mg/dL (0.7-1.3); GLUCOSE,RANDOM 102 mg/dL (74-106); SGOT/AST 216 U/L (15-37); SGPT/ALT 71 U/L (12-78); TOT PROT 6.4 g/dl (6.4-8.2)
[2017-09-29 08:13] LABS: ALK PHOS 127 U/L (45-117); FERRITIN 128.777 ng/ml (16.4-293.9)
--- NOTE | 2017-09-29 08:38 | PN ---
Progress Note, Physician Chief Complaint: GIB History of Present Illness: denies any more melena as of this am. no cp, sob, palpitations, syncope + etoh abuse - Current Medication List Current Medications: Active Medications Al Hydroxide/Mg Hydroxide (Mylanta Oral Suspension -) 30 ml PO Q6HPO [facility] Last Admin: 09/29/17 06:27 Dose: 30 ml Allopurinol (Zyloprim -) 100 mg PO DAILY [facility] Last Admin: 09/28/17 09:27 Dose: 100 mg Amlodipine Besylate (Norvasc -) 5 mg PO DAILY [facility] Last Admin: 09/28/17 09:27 Dose: 5 mg Atorvastatin Calcium (Lipitor -) 10 mg PO HS [facility] Last Admin: 09/28/17 21:10 Dose: 10 mg Gabapentin (Neurontin -) 300 mg PO BID [facility] Last Admin: 09/28/17 21:10 Dose: 300 mg Metoprolol Succinate (Toprol Xl -) 25 mg PO HS [facility] Last Admin: 09/28/17 21:10 Dose: 25 mg Non-Formulary Medication (Abacavir/Dolutegravir/Lamivudi [Triumeq Tablet]) 1 each PO DAILY [facility] Last Admin: 09/28/17 09:28 Dose: 1 each Ondansetron HCl (Zofran Injection) 4 mg IVPUSH Q6H PRN PRN Reason: NAUSEA Pantoprazole Sodium (Protonix -) 40 mg PO BID [facility] Last Admin: 09/28/17 21:10 Dose: 40 mg Tamsulosin HCl (Flomax -) 0.4 mg PO DAILY [facility] Last Admin: 09/28/17 09:28 Dose: 0.4 mg Valsartan (Diovan -) 320 mg PO DAILY [facility] Last Admin: 09/28/17 09:27 Dose: 320 mg - Objective Vital Signs: Vital Signs Temperature 98.1 F 09/29/17 08:00 Pulse Rate 83 09/29/17 08:00 Respiratory Rate 20 09/29/17 08:00 Blood Pressure 120/68 09/29/17 08:00 O2 Sat by Pulse Oximetry (%) 98 09/29/17 04:00 Constitutional: Yes: No Distress, Calm Eyes: No: Sclera Icterus HENT: No: Nasal Congestion Cardiovascular: Yes: Regular Rate and Rhythm, S1, S2, Other (PMI non diplaced). No: JVD, Gallop, Murmur Respiratory: Yes: CTA Bilaterally. No: Accessory Muscle Use, Rales, Wheezes Gastrointestinal: Yes: Normal Bowel Sounds, Soft. No: Tenderness Musculoskeletal: Yes: Other (No kyphosis) Extremities: No: Cold Edema: No Integumentary: No: Jaundice Neurological: Yes: Alert, Oriented (x3) Psychiatric: No: Agitated Labs: CBC, BMP 09/29/17 05:48 INR, PTT INR 1.05 (0.82-1.09) 09/26/17 18:38 - ....Imaging EKG: Other (tele: NSR) Assessment/Plan Echo 11/2016: tds. 1+ lve. Nl overall LV fn, with mod HK of inferolat acevedo. inf and lat acevedo not seen. nl rv size/fn. IAS. Last cath 2014: patent stents and grafts at that time. 67 yo with h/o HTN, HLD, CAD/OK s/p cabg (GRAHAM-LAD, SVG-RPDA/RPL, EES-EM5-VL0- OM3, SVG-Diag) and prior pci of RPDA and RPL1 (last 2013) on dapt, HIV, etoh use , GERD, cholelithiasis, colon adenoma, diverticulosis, fatty liver, nodular goiter, renal calculi, BPH, gout who p/w hematemesis and melena. UGIB - a/w melena and anemia, s/p prbc's here - s/p endoscopy 09/27, GI noted appreciated: multiple potential bleeding sites found but the most likely is severe erosive distal esophagitis above a hiatal hernia. - DAPT plan below - he has been counselled repeatedly by me on etoh cessation in past, as well as by GI in light of above findings--again d/w'd pt by me today. he verbalizes understanding and states he was scared by this episode and plans to quit completely now CAD/OK s/p cabg (GRAHAM-LAD, SVG-RPDA/RPL, SJQ-QW4-PT0-OM3, SVG-Diag) and prior pci of RPDA and RPL1 (last 2013) on dapt - has been on long-standing dapt, with plan to d/c plavix after 30-36 mo (per DAPT trial benefits) - plavix d/c'd here, due to UGIB - con't livalo, toprol. - d/w'd dr younger: ok to resume ASA after 7 days (plan to restart 10/04 if no further signs of bleeding) - avoidance of nsaids as outpatient (d/w'd pt who confirms he's not been taking) htn - has been fairly well controlled of late on home regimen: arb, metoprolol, norvasc. - bp stable here, same meds HPL - intolerant of multiple statins, tolerating livalo long time. Currently enrolled in RCT of PCSK-9 inhibitor ([place]) - LFT's chronically elevated due to ABDULLAHI and etoh (sees dr tafoya as outpt)-- higher here, GI following etoh - cessation counseled. brief runs of sinus tachycardia/possible svt - consider need to increase toprol dose when clear that patient no longer bleeding. no indication for tele--d/c
[2017-09-29] MEDS: PANTOPRAZOLE 40 MG TABLET (FP) PO SCH ×2 (09:29→20:59)
[2017-09-29] MEDS: VALSARTAN 160 MG TABLET (UD) PO SCH (09:29)
[2017-09-29] MEDS: GABAPENTIN 300 MG CAPSULE (FP) PO SCH ×2 (09:29→20:59)
[2017-09-29] MEDS: ALLOPURINOL 100 MG TABLET (FP) PO SCH (09:30)
[2017-09-29] MEDS: TAMSULOSIN HCL 0.4 MG CAP.ER.24H (FP) PO SCH (09:30)
[2017-09-29] MEDS: amLODIPine BESYLATE 5 MG TABLET (FP) PO SCH (09:30)
--- NOTE | 2017-09-29 13:18 | PN ---
Progress Note (short form) - Note Progress Note: currently asymptomatic. states his BM today was light brown. tolerating soft diet. denies CP, SOB, fever, chills, N/V/C/D, hemetemsis, BRBPR or melena Current Medications Generic Name Dose Route Start Last Admin Trade Name Freq PRN Reason Stop Dose Admin Al Hydroxide/Mg Hydroxide 30 ml 09/27/17 18:00 09/29/17 11:36 Mylanta Oral Suspension - PO 30 ml Q6HPO MARGOTH Administration Allopurinol 100 mg 09/27/17 10:00 09/29/17 09:30 Zyloprim - PO 100 mg DAILY MARGOTH Administration Amlodipine Besylate 5 mg 09/27/17 10:00 09/29/17 09:30 Norvasc - PO 5 mg DAILY MARGOTH Administration Atorvastatin Calcium 10 mg 09/27/17 22:00 09/28/17 21:10 Lipitor - PO 10 mg HS MARGOTH Administration Gabapentin 300 mg 09/27/17 10:00 09/29/17 09:29 Neurontin - PO 300 mg BID MARGOTH Administration Metoprolol Succinate 25 mg 09/27/17 22:00 09/28/17 21:10 Toprol Xl - PO 25 mg HS MARGOTH Administration Non-Formulary Medication 1 each 09/27/17 10:00 09/29/17 09:30 Abacavir/Dolutegravir/Lamivudi [Triumeq Tablet] PO 1 each DAILY [facility]ARGOTH Administration Ondansetron HCl 4 mg 09/26/17 23:06 Zofran Injection IVPUSH Q6H PRN NAUSEA Pantoprazole Sodium 40 mg 09/28/17 22:00 09/29/17 09:29 Protonix - PO 40 mg BID MARGOTH Administration Tamsulosin HCl 0.4 mg 09/27/17 10:00 09/29/17 09:30 Flomax - PO 0.4 mg DAILY MARGOTH Administration Valsartan 320 mg 09/27/17 10:00 09/29/17 09:29 Diovan - PO 320 mg DAILY MARGOTH Administration Last Vital Signs Temp Pulse Resp BP Pulse Ox 98.1 F 83 20 120/68 99 09/29/17 08:00 09/29/17 08:00 09/29/17 08:00 09/29/17 08:00 09/29/17 08:00 General NAD CV S1 S2 RRR no murmur/rub/gallop Lungs CTA B/L no wheeznig/rales/rhonchi Abdomen soft NT/ND neg gage sign no fluid wave obese Extremities no pedal edema CBCD WBC 7.8 K/mm3 (4.0-10.0) 09/29/17 05:48 RBC 3.61 M/mm3 (4.00-5.60) L 09/29/17 05:48 Hgb 11.0 GM/dL (11.7-16.9) L 09/29/17 05:48 Hct 33.3 % (35.4-49) L 09/29/17 05:48 MCV 92.4 fl (80-96) 09/29/17 05:48 MCHC 32.9 g/dl (32.0-35.9) 09/29/17 05:48 RDW 17.4 % (11.9-15.9) H 09/29/17 05:48 Plt Count 169 K/MM3 (134-434) 09/29/17 05:48 MPV 8.4 fl (7.5-11.1) 09/29/17 05:48 CMP Sodium 142 mmol/L (136-145) 09/29/17 05:48 Potassium 4.2 mmol/L (3.5-5.1) 09/29/17 05:48 Chloride 107 mmol/L (98-107) 09/29/17 05:48 Carbon Dioxide 29 mmol/L (21-32) 09/29/17 05:48 Anion Gap 6 (8-16) L 09/29/17 05:48 BUN 16 mg/dL (7-18) D 09/29/17 05:48 Creatinine 1.3 mg/dL (0.7-1.3) 09/29/17 05:48 Creat Clearance w eGFR 54.90 (>60) 09/29/17 05:48 Calcium 7.8 mg/dL (8.5-10.1) L 09/29/17 05:48 Total Bilirubin 0.4 mg/dL (0.2-1.0) D 09/29/17 05:48 AST 216 U/L (15-37) H 09/29/17 05:48 ALT 71 U/L (12-78) 09/29/17 05:48 Alkaline Phosphatase 127 U/L (45-117) H 09/29/17 05:48 Total Protein 6.4 g/dl (6.4-8.2) 09/29/17 05:48 Albumin 3.1 g/dl (3.4-5.0) L 09/29/17 05:48 A/P 67 year old with PMHx of HTN, hyperlipidemia, CAD/NV, HIV, GERD, cholelithiasis, colon adenoma, diverticulosis, fatty liver, renal calculi, BPH, gout, daily alcohol drinker, who presented to the ED with one episode of vomiting bright red blood. 1. Hematemesis- EGD on 09/27: severe erosive distal esophagitis. diet advance to soft and tolerating. melena resolved. Hgb stable. on protonix po. octreotide d/ c yesterday. cont to hold asa/plavix. can re-start asa 10/04. counseled on importance of ETOH abstinence. avoid NSAIDS. stool studies sent for hpyori 2. Acute transaminitis- increase in AST yesterday. remains elevated. asymptomatic. may be medication induced from octreotide which was stopped yesterday. check liver u/s. hepatitis panel pending. likely has underlying disease from ETOH dependence. fibrosource pending 3. JIGNA- now at baseline. d/c IVF. 4. CAD- s/p stents. asa/plavix on hold due to GI bleed. can re-start asa 10/04. hold plavix until cleared by GI to re-start. cardio on board 5. HIV on HARRT 6. HTN- controlled 7. DVT ppx- SCD. 8. can d/c tele. Visit type - Emergency Visit Emergency Visit: Yes ED Registration Date: 09/27/17 Care time: The patient presented to the Emergency Department on the above date and was hospitalized for further evaluation of their emergent condition. - New Patient This patient is new to me today: Yes Date on this admission: 09/29/17 - Critical Care Critical Care patient: No - Discharge Referral Referred to [facility] Med P.C.: No
--- NOTE | 2017-09-29 17:39 | PN ---
GI Progress Note Subjective: GI NOte: Pain free and tolerating solids. Had a brown BM. - Objective Vital Signs: Vital Signs Temperature 98.1 F 09/29/17 08:00 Pulse Rate 83 09/29/17 08:00 Respiratory Rate 20 09/29/17 08:00 Blood Pressure 120/68 09/29/17 08:00 O2 Sat by Pulse Oximetry (%) 99 09/29/17 08:00 Laboratory Tests 09/27/17 09/28/17 09/29/17 01:27 05:45 05:48 Hgb 8.2 L D 11.3 L 11.0 L Constitutional: Calm ...Auscultate: Yes: Normoactive Bowel Sounds ...Palpate: Yes: Other (nontender) Labs: CBC, BMP 09/29/17 05:48 09/29/17 05:48 INR, PTT INR 1.05 (0.82-1.09) 09/26/17 18:38 Problem List - Problems (1) Hiatal hernia with GERD and esophagitis Code(s): K44.9 - DIAPHRAGMATIC HERNIA WITHOUT OBSTRUCTION OR GANGRENE; K21.0 - GASTRO-ESOPHAGEAL REFLUX DISEASE WITH ESOPHAGITIS (2) Gastrointestinal bleeding, upper Assessment/Plan: Bleeding appears to have resolved. Discussed case with Dr. Fuentes who has stopped the Plavix permanently and asked that the aspirin be witheld for 1 week further. No objections to discharge in AM if stable. Code(s): K92.2 - GASTROINTESTINAL HEMORRHAGE, UNSPECIFIED (3) Duodenitis Code(s): K29.80 - DUODENITIS WITHOUT BLEEDING (4) Gastritis Code(s): K29.70 - GASTRITIS, UNSPECIFIED, WITHOUT BLEEDING Qualifiers: Gastritis type: alcoholic (5) Alcoholic hepatitis without ascites Code(s): K70.10 - ALCOHOLIC HEPATITIS WITHOUT ASCITES
[2017-09-29] MEDS: METOPROLOL SUCCINATE 25 MG TAB.SR.24H (FP) PO SCH (20:59)
[2017-09-29] MEDS: ATORVASTATIN CA 10 MG TABLET (FP) PO SCH (20:59)
[2017-09-30] MEDS: MAG HYDROX/AL HYDROX/SIMETH 30 ML UNIT-DOSE CUP PO SCH (05:59)
[2017-09-30 07:52] LABS: ALBUMIN 3.3 g/dl (3.4-5.0); ANION GAP 8 (8-16); CALCIUM 8.3 mg/dL (8.5-10.1); CO2 27 mmol/L (21-32)
[2017-09-30 07:55] LABS: ALK PHOS 119 U/L (45-117); BILIRUBIN,TOTAL 0.4 mg/dL (0.2-1.0); CREATININE 1.2 mg/dL (0.7-1.3); GLUCOSE,RANDOM 99 mg/dL (74-106); SGOT/AST 175 U/L (15-37); SGPT/ALT 66 U/L (12-78); TOT PROT 6.3 g/dl (6.4-8.2)
[2017-09-30 09:08] LABS: BASOPHIL 0.4 % (0-2.0); MCH 30.1 pg (25.7-33.7); MCHC 32.5 g/dl (32.0-35.9); MEAN CELL VOLUME 92.8 fl (80-96); MEAN PLT VOLUME 8.6 fl (7.5-11.1); NEUTROPHILS 58.1 % (42.8-82.8); PLATELET COUNT 172 K/MM3 (134-434); RDW 17.5 % (11.9-15.9)
[2017-09-30] MEDS: VALSARTAN 160 MG TABLET (UD) PO SCH (09:34)
[2017-09-30] MEDS: TAMSULOSIN HCL 0.4 MG CAP.ER.24H (FP) PO SCH (09:34)
[2017-09-30] MEDS: ALLOPURINOL 100 MG TABLET (FP) PO SCH (09:35)
[2017-09-30] MEDS: amLODIPine BESYLATE 5 MG TABLET (FP) PO SCH (09:35)
[2017-09-30] MEDS: GABAPENTIN 300 MG CAPSULE (FP) PO SCH (09:35)
[2017-09-30] MEDS: PANTOPRAZOLE 40 MG TABLET (FP) PO SCH (09:35)
--- NOTE | 2017-09-30 09:47 | PN ---
Progress Note, Physician Chief Complaint: GIB History of Present Illness: no melena/blood eating regular food, no complaints including no abd pain no cp, sob, palpitations - Current Medication List Current Medications: Active Medications Al Hydroxide/Mg Hydroxide (Mylanta Oral Suspension -) 30 ml PO Q6HPO [facility] Last Admin: 09/30/17 05:59 Dose: Not Given Allopurinol (Zyloprim -) 100 mg PO DAILY [facility] Last Admin: 09/30/17 09:35 Dose: 100 mg Amlodipine Besylate (Norvasc -) 5 mg PO DAILY [facility] Last Admin: 09/30/17 09:35 Dose: 5 mg Atorvastatin Calcium (Lipitor -) 10 mg PO HS [facility] Last Admin: 09/29/17 20:59 Dose: 10 mg Gabapentin (Neurontin -) 300 mg PO BID [facility] Last Admin: 09/30/17 09:35 Dose: 300 mg Metoprolol Succinate (Toprol Xl -) 25 mg PO HS [facility] Last Admin: 09/29/17 20:59 Dose: 25 mg Non-Formulary Medication (Abacavir/Dolutegravir/Lamivudi [Triumeq Tablet]) 1 each PO DAILY [facility] Last Admin: 09/30/17 09:37 Dose: 1 each Ondansetron HCl (Zofran Injection) 4 mg IVPUSH Q6H PRN PRN Reason: NAUSEA Pantoprazole Sodium (Protonix -) 40 mg PO BID [facility] Last Admin: 09/30/17 09:35 Dose: 40 mg Tamsulosin HCl (Flomax -) 0.4 mg PO DAILY [facility] Last Admin: 09/30/17 09:34 Dose: 0.4 mg Valsartan (Diovan -) 320 mg PO DAILY [facility] Last Admin: 09/30/17 09:34 Dose: 320 mg - Objective Vital Signs: Vital Signs Temperature 98.9 F 09/30/17 05:00 Pulse Rate 62 09/30/17 05:00 Respiratory Rate 20 09/30/17 05:00 Blood Pressure 136/73 09/30/17 05:00 O2 Sat by Pulse Oximetry (%) 95 09/29/17 20:50 Constitutional: Yes: Well Nourished, No Distress, Calm Cardiovascular: Yes: Regular Rate and Rhythm, S1, S2. No: Gallop, Murmur Respiratory: Yes: Regular, CTA Bilaterally. No: Accessory Muscle Use, Rales, Wheezes Extremities: No: Cold Edema: No Neurological: Yes: Alert, Oriented Psychiatric: No: Agitated Labs: CBC, BMP 09/30/17 08:50 09/30/17 05:28 INR, PTT INR 1.05 (0.82-1.09) 09/26/17 18:38 - ....Imaging EKG: Other (tele: NSR) Assessment/Plan Echo 11/2016: tds. 1+ lve. Nl overall LV fn, with mod HK of inferolat acevedo. inf and lat acevedo not seen. nl rv size/fn. IAS. Last cath 2014: patent stents and grafts at that time. 67 yo with h/o HTN, HLD, CAD/[place] s/p cabg (GRAHAM-LAD, SVG-RPDA/RPL, MVG-PX3-EU6- OM3, SVG-Diag) and prior pci of RPDA and RPL1 (last 2013) on dapt, HIV, etoh use , GERD, cholelithiasis, colon adenoma, diverticulosis, fatty liver, nodular goiter, renal calculi, BPH, gout who p/w hematemesis and melena. UGIB - a/w melena and anemia, s/p prbc's here - s/p endoscopy 09/27, GI noted appreciated: multiple potential bleeding sites found but the most likely is severe erosive distal esophagitis above a hiatal hernia. - DAPT plan below - he has been counselled repeatedly by me on etoh cessation in past, as well as by GI in light of above findings--again d/w'd pt by me today. he verbalizes understanding and states he was scared by this episode and plans to quit completely now CAD/DE s/p cabg (GRAHAM-LAD, SVG-RPDA/RPL, VOY-UC4-ER4-OM3, SVG-Diag) and prior pci of RPDA and RPL1 (last 2013) on dapt - has been on long-standing dapt, with plan to d/c plavix after 30-36 mo (per DAPT trial benefits) - plavix d/c'd here, due to UGIB - con't livalo, toprol. - d/w'd dr younger: ok to resume ASA after 7 days (plan to restart 10/04 if no further signs of bleeding) - avoidance of nsaids as outpatient (d/w'd pt who confirms he's not been taking) htn - has been fairly well controlled of late on home regimen: arb, metoprolol, norvasc. - bp stable here, same meds HPL - intolerant of multiple statins, tolerating livalo long time. Currently enrolled in RCT of PCSK-9 inhibitor ([place]) - LFT's chronically elevated due to ABDULLAHI and etoh (sees dr tafoya as outpt)-- higher here, GI following etoh - cessation counseled. brief runs of sinus tachycardia/possible svt - consider need to increase toprol dose when clear that patient no longer bleeding. no indication for tele--d/c
[2017-09-30 11:36] VITALS: BP 122/67; PULSE 70; TEMP 98.2
--- NOTE | 2017-09-30 12:15 | DS ---
Physical Exam: SUBJECTIVE: Patient seen and examined. States he feels well. States his BM today was brown, tolerating soft diet. denies Chest pain or shortness of breath. Denies fever, chills, hemetemsis, BRBPR or melena OBJECTIVE: For discharge home today Vital Signs Period Temp Pulse Resp BP Sys/Linares Pulse Ox Last 24 Hr 97.9 F-98.9 F 62-82 18-20 122-136/59-83 95-98 PHYSICAL EXAM GENERAL: The patient is awake, alert, and fully oriented, in no acute distress. HEAD: Normal with no signs of trauma. EYES: PERRL, extraocular movements intact, sclera anicteric, conjunctiva clear. ENT: Ears normal, nares patent, oropharynx clear without exudates, moist mucous membranes. NECK: Trachea midline, full range of motion, supple. LUNGS: Breath sounds equal, clear to auscultation bilaterally, no wheezes, no crackles, no accessory muscle use. HEART: Regular rate and rhythm, S1, S2 without murmur, rub or gallop. ABDOMEN: Soft, nontender, nondistended, normoactive bowel sounds, no guarding, no rebound, no hepatosplenomegaly, no masses. EXTREMITIES: 2+ pulses, warm, well-perfused, no edema. NEUROLOGICAL: Normal speech, gait not observed. PSYCH: Normal mood, normal affect. SKIN: Warm, dry, normal turgor, no rashes or lesions noted. LABS Laboratory Results - last 24 hr 09/26/17 09/28/17 09/30/17 18:38 12:00 05:28 WBC RBC Hgb Hct MCV MCH MCHC RDW Plt Count MPV Neutrophils % Lymphocytes % Monocytes % Eosinophils % Basophils % Sodium 143 Potassium 4.2 Chloride 108 H Carbon Dioxide 27 Anion Gap 8 BUN 16 Creatinine 1.2 Creat Clearance w eGFR > 60 Random Glucose 99 Calcium 8.3 L Total Bilirubin 0.4 AST 175 H ALT 66 Alkaline Phosphatase 119 H Total Protein 6.3 L Albumin 3.3 L Hepatitis C Antibody <0.1 Blood Type A POSITIVE Antibody Screen Negative Crossmatch See Detail 09/30/17 08:50 WBC 8.0 RBC 3.64 L Hgb 11.0 L Hct 33.8 L MCV 92.8 MCH 30.1 MCHC 32.5 RDW 17.5 H Plt Count 172 MPV 8.6 Neutrophils % 58.1 Lymphocytes % 27.9 Monocytes % 9.6 Eosinophils % 4.0 Basophils % 0.4 Sodium Potassium Chloride Carbon Dioxide Anion Gap BUN Creatinine Creat Clearance w eGFR Random Glucose Calcium Total Bilirubin AST ALT Alkaline Phosphatase Total Protein Albumin Hepatitis C Antibody Blood Type Antibody Screen Crossmatch HOSPITAL COURSE: Date of Admission:09/27/17 Date of Discharge: 09/30/17 Patient is a 67 year old male with a past medical history of HTN, hyperlipidemia , CAD/CO, HIV+, GERD, cholelithiasis, colon adenoma, diverticulosis, fatty liver , renal calculi, BPH, gout, daily alcohol drinker, who presented to the ED on with one episode of vomiting bright red blood. GI: Hematemesis, resolved Had EGD on 09/27/17 which found severe erosive distal esophagitis. Tolerating soft diet, melena resolved hmg/hct stable On Protonix PO BID, which should continue as an outpatient pending Gi follow up Plavix to be held indefinately as per cardiology, ASA can be restarted on 2016 ETOB abstinence discussed, pt in agreement to stop, not seeking outpatient help at this time Transaminitis Likely due to chronic ETOH use AST/ALT trending down Abdominal ultrasound shows boderline hepatomegaly with fatty infiltration vs hepatocelluar disease, small gallstones seen no acute dionna, small bilateral simple renal cysts Patient in agreement to follow up with GI specialist as an outpatient for repeat labs : Acute Kidney Injury, resolved Cardiology CAD with stents Stop Plavix per cardiology ASA restart on 10/04/2017 Hypertension, chronic/controlled Discharge Summary Reason For Visit: HEMATEMESIS Current Active Problems Alcoholic hepatitis without ascites (Acute) CAD (coronary artery disease) (Acute) Dark stools (Acute) Duodenitis (Acute) Gastritis (Acute) Gastrointestinal bleeding, upper (Acute) Hematemesis/vomiting blood (Acute) Hiatal hernia with GERD and esophagitis (Acute) Vomiting blood (Acute) Condition: Improved - Instructions Diet, Activity, Other Instructions: Mr. Dickens: Please continue the following medications: - antireflux medication Gaviscon - over the counter - Protonix 40mg twice per day (on an empty stomach 1 hour before meals) - continue twice per day until you see Dr. Shields on follow up appointment It is important that you abstain from alcohol Do not start the Plavix, this medication as been discontinued. Start the Aspirin on October 04/2017, if no further signs of bleeding. continue the Lasix 20mg every other day as you taking at home, please follow up with your primary care doctor for repeat lab work within 3 days after discharge. Please call me with any questions that you may have [facility] [phone] Referrals: Jose Yeung MD [Primary Care Provider] - Keshawn Fuentes MD [Staff Physician] - 2 Weeks Haylee Clinton MD [Staff Physician] - 1 Week Disposition: HOME - Home Medications Comprehensive Discharge Medication List: Ambulatory Orders Amlodipine Besylate [Norvasc -] 5 mg PO DAILY #0 tablet 05/29/13 Aspirin [ASA -] 81 mg PO HS #0 tab.chew 05/29/13 Clopidogrel Bisulfate [Plavix -] 75 mg PO DAILY 06/27/14 Abacavir/Dolutegravir/Lamivudi [Triumeq Tablet] 1 each PO DAILY 02/11/17 Allopurinol [Zyloprim -] 100 mg PO DAILY 02/11/17 Escitalopram Oxalate [Lexapro -] 10 mg PO DAILY 02/11/17 Furosemide [Lasix -] 20 mg PO DAILY 02/11/17 Gabapentin 300 mg PO BID 02/11/17 Olmesartan Medoxomil [Benicar -] 40 mg PO DAILY 02/11/17 Pitavastatin Calcium [Livalo] 2 mg PO DAILY 02/11/17 Ranitidine [Zantac -] 150 mg PO DAILY 02/11/17 Triamcinolone Acetonide 1 applic TP DAILY 02/11/17 Celecoxib [Celebrex] 200 mg PO DAILY 09/26/17 Metoprolol Succinate [Toprol Xl -] 25 mg PO DAILY 09/26/17 Tamsulosin HCl [Flomax] 0.4 mg PO HS 09/26/17 - Discharge Referral Referred to [facility] No
[2017-10-03 08:08] LABS: ALPHA 2 MACROGLOBULINS,QN 99 mg/dL (110-276); BILIRUBIN TOTAL 0.5 mg/dL (0.0-1.2); FIBROSIS SCORE- 0.13 (0.00-0.21); GGT= 153 IU/L (0-65); GLUCOSE SERUM 142 mg/dL (65-99); HAPTOGLOBIN= 182 mg/dL (34-200); HEIGHT. 72 Inches (.); STEATOSIS SCORE- 0.89 (0.00-0.30); TRIGLYCERIDES= 240 mg/dL (0-149); WEIGHT. 238 LBS (.)
== END 2017-09-30 13:53 | disposition home or self-care (01) | DRG 378 ==
LOC: JER 18:15 → JERBED 21:54 → INTOOBSV 21:54 → J4W 09-27 01:52 → OBSVTOIN 09-27 03:32
PROVIDERS: ADMIT Internal Medicine; ATTEND Nurse Practitioner Family
PROC: 30233N1 Transfusion of Nonautologous Red Blood Cells into Peripheral Vein, Percutaneous Approach (ICD-10-PCS; 2017-09-27)
PROC: 0DJ08ZZ Inspection of Upper Intestinal Tract, Via Natural or Artificial Opening Endoscopic (ICD-10-PCS; principal; 2017-09-27 14:30)
DX: K92.0 Hematemesis (principal); N17.9 Acute kidney failure, unspecified; I47.1 Supraventricular tachycardia; I25.10 Atherosclerotic heart disease of native coronary artery without angina pectoris; I10 Essential (primary) hypertension; E78.5 Hyperlipidemia, unspecified; Z21 Asymptomatic human immunodeficiency virus [HIV] infection status; K76.0 Fatty (change of) liver, not elsewhere classified; R74.0 Nonspecific elevation of levels of transaminase and lactic acid dehydrogenase [LDH]; K44.9 Diaphragmatic hernia without obstruction or gangrene; Z98.61 Coronary angioplasty status; K70.10 Alcoholic hepatitis without ascites; F10.20 Alcohol dependence, uncomplicated; Z87.891 Personal history of nicotine dependence; K21.0 Gastro-esophageal reflux disease with esophagitis; Z95.1 Presence of aortocoronary bypass graft; D64.9 Anemia, unspecified
CPT/HCPCS: 36415; 36430; 36511; 71010-TC; 76700-TC; 80048; 80053; 80076; 82105; 82150; 82272; 82728; 83540; 83550; 83605; 83690; 83735; 84100; 85025; 85610; 85730; 86038; 86140; 86704; 86706; 86708; 86803; 86850; 86900; 86901; 86922; 87340; 93005; 93010; 99283-25; G0378; P9038; P9058

== ENCOUNTER 2017-12-12 08:37 | Day surgery (SDC) | payer OTHER ==
[2017-12-11 14:49] VITALS: BMI 32.8
[2017-12-12 09:32] LABS: ANION GAP 8 (8-16); BLOOD UREA NITROGEN 18 mg/dL (7-18); CALCIUM 8.1 mg/dL (8.5-10.1); CHLORIDE 106 mmol/L (98-107); CO2 27 mmol/L (21-32); CREATININE 1.3 mg/dL (0.7-1.3); GLUCOSE,RANDOM 113 mg/dL (74-106); POTASSIUM 3.8 mmol/L (3.5-5.1); SODIUM 141 mmol/L (136-145)
[2017-12-12] MEDS ORDERED: HEPARIN NA (PORCINE) 5,000 UNITS/ML 1ML VIAL ONE ×2 (11:15→12:08)
[2017-12-12] MEDS ORDERED: fentaNYL CITRATE 250 MCG/5 ML VIAL ONE (11:31)
[2017-12-12] MEDS ORDERED: ceFAZolin SODIUM 1 GM VIAL ONE (11:31)
[2017-12-12] MEDS ORDERED: PROPOFOL 20 ML ONE ×2 (11:32)
[2017-12-12] MEDS ORDERED: MIDAZOLAM HCL 2 MG/2 ML SINGLE DOSE VIAL ONE ×2 (11:32)
[2017-12-12] MEDS ORDERED: LIDOCAINE HCL 1%, 10 MG/ML (50 mL VIAL) IJ ONE (11:57)
[2017-12-12] MEDS ORDERED: LIDOCAINE HCL/PF 2% SDV 5ML VIAL ONE (12:08)
[2017-12-12] MEDS ORDERED: oxyCODONE HCL 5 MG TABLET PO PRN (12:27)
[2017-12-12] MEDS ORDERED: PROMETHAZINE HCL 25 MG/1 ML VIAL IVPUSH PRN (12:27)
[2017-12-12] MEDS ORDERED: ONDANSETRON 4 MG/2 ML VIAL IVPUSH PRN (12:27)
--- NOTE | 2017-12-12 12:28 | OP ---
Operative Note - Note: Operative Date: 12/12/17 Pre-Operative Diagnosis: RLE claudication Operation: Aortogram, RLE angiogram Post-Operative Diagnosis: Same as Pre-op Surgeon: Ciro Alas Anesthesia: Fractional Estimated Blood Loss (mls): 20 Operative Report Dictated: Yes
[2017-12-12] MEDS ORDERED: LACTATED RINGERS SOLUTION 1,000 ML IV SCH (12:30)
--- NOTE | 2017-12-12 12:30 | HP ---
Admitting History and Physical - Admission Chief Complaint: RLE claudication after walking two blocks. Limitations to Obtaining History: No Limitations - Past Medical History Cardiovascular: Yes: CAD (S/P CABG, S/P cardiac stents), HTN, Hyperlipdemia, Other (? of PVD/claudication symptoms) Gastrointestinal: Yes: Diverticulosis, Other (Fatty liver, colon polyps) Hepatobiliary: Yes: Cholelithiasis Renal/: Yes: Renal Calculi Infectious Disease: Yes: HIV - Past Surgical History Past Surgical History: Yes: CABG, Joint Replacement (bilateral knees, right hip x 2) - Smoking History Smoking history: Former smoker Have you smoked in the past 12 months: No Aproximately how many cigarettes per day: 0 If you are a former smoker, when did you quit?: 10yrs - Alcohol/Substance Use Hx Alcohol Use: Yes (2 drinks daily) Home Medications - Allergies Allergies/Adverse Reactions: Allergies Allergy/AdvReac Type Severity Reaction Status Date / Time quinapril HCl [From Accupril] Allergy Intermediate Verified 09/26/17 18:26 - Home Medications Home Medications: Ambulatory Orders Amlodipine Besylate [Norvasc -] 5 mg PO DAILY #0 tablet 05/29/13 Aspirin [ASA -] 81 mg PO HS #0 tab.chew 05/29/13 Abacavir/Dolutegravir/Lamivudi [Triumeq Tablet] 1 each PO DAILY 02/11/17 Escitalopram Oxalate [Lexapro -] 10 mg PO DAILY 02/11/17 Gabapentin 300 mg PO BID 02/11/17 Pitavastatin Calcium [Livalo] 2 mg PO DAILY 02/11/17 Triamcinolone Acetonide 1 applic TP DAILY 02/11/17 Metoprolol Succinate [Toprol XL -] 25 mg PO DAILY 09/26/17 Tamsulosin HCl [Flomax -] 0.4 mg PO HS 09/26/17 Metoprolol Succinate [Toprol XL -] 25 mg PO HS #30 tab.sr.24h 09/30/17 Valsartan 320 mg PO DAILY #30 tablet 09/30/17 Pantoprazole Sodium [Protonix -] 20 mg PO BID 12/11/17 Family Disease History - Family Disease History Family Disease History: Other: Father ( 70's: Alcoholism), Mother (: 60' s: COPD), Brother (5, 1 : drug abuse), Sister (3: healthy), Son (3 sons, healthy) Review of Systems - Review of Systems Constitutional: reports: No Symptoms Eyes: reports: No Symptoms HENT: reports: No Symptoms Neck: reports: No Symptoms Cardiovascular: reports: No Symptoms Respiratory: reports: No Symptoms Gastrointestinal: reports: No Symptoms Musculoskeletal: reports: No Symptoms Integumentary: reports: No Symptoms Neurological: reports: No Symptoms Endocrine: reports: No Symptoms Hematology/Lymphatic: reports: No Symptoms Psychiatric: reports: No Symptoms Physical Examination Vital Signs: Vital Signs Temperature 97.6 F 12/12/17 09:52 Pulse Rate 72 12/12/17 09:52 Respiratory Rate 18 12/12/17 09:52 Blood Pressure 150/82 12/12/17 09:52 O2 Sat by Pulse Oximetry (%) 96 12/12/17 09:52 Constitutional: Yes: Well Nourished, No Distress, Calm Eyes: Yes: WNL, Conjunctiva Clear, EOM Intact HENT: Yes: WNL, Atraumatic, Normocephalic Neck: Yes: WNL, Supple, Trachea Midline Cardiovascular: Yes: WNL, Regular Rate and Rhythm Respiratory: Yes: WNL, Regular, CTA Bilaterally Gastrointestinal: Yes: WNL, Normal Bowel Sounds Musculoskeletal: Yes: WNL Extremities: Yes: WNL Edema: No Integumentary: Yes: WNL Neurological: Yes: WNL, Alert, Oriented ...Motor Strength: WNL Psychiatric: Yes: WNL Labs: CBC, BMP 12/12/17 08:50 Problem List - Problems (1) Claudication Code(s): I73.9 - PERIPHERAL VASCULAR DISEASE, UNSPECIFIED Assessment/Plan RLE claudication after walking two blocks 1. For angiogram today
[2017-12-12 13:32] VITALS: TEMP 97.7
[2017-12-12 15:13] VITALS: BP 144/74; PULSE 66
--- NOTE | 2017-12-17 07:54 | OP ---
DATE OF OPERATION: 12/12/2017 PREOPERATIVE DIAGNOSIS: Right lower extremity claudication. POSTOPERATIVE DIAGNOSIS: Right lower extremity claudication. PROCEDURE: Aortogram, right lower extremity angiogram. SURGEON: Ciro Wheat DO ANESTHESIA: Fractional. BLOOD LOSS: 10 mL INDICATION FOR PROCEDURE: The patient is a 67-year-old male who complains of 3-block claudication. He had preoperative ultrasound done in the office, showing a 50% to 70% lesion in the popliteal artery. Patient has significant pain in his back, causing neurological pain as well, and we decided that we would do a diagnostic angiogram to rule out any arterial disease. Patient was consented for the procedure, understanding all risks, benefits, and alternatives, then taken to the operating room. DESCRIPTION OF PROCEDURE: Once in the operating room, he was laid on the operating table in supine manner, and the areas of the right and left groin were prepped and draped in a sterile surgical manner. We then injected 10 mL of lidocaine 1% over the left common femoral artery. We then used our micropuncture needle and punctured the left common femoral artery. Micropuncture wire was inserted, and a traditional 5-[place] sheath was placed. We then placed a 0.035 floppy guidewire up into the aorta, followed by Omni Flush catheter. We then shot an aortogram via hand injection, showing that the aorta and the bilateral iliac arteries were without any disease. We then placed our 0.035 floppy guidewire up and over to the right common femoral artery, and our Omni Flush catheter followed. We then shot an angiogram of the right lower extremity via hand injection, which showed that the common femoral artery, the profunda, and the SFA were patent. The popliteal artery was patent. The patient had 2-vessel runoff into the foot. At this point, we decided that there was no lesion that needed any intervention. We brought our Omni Flush catheter up and over. We removed our sheath, and pressure was heled in the left groin for 5 minutes. After that, there was no more bleeding. Area was wet and dried, and Dermabond was placed. Patient tolerated the procedure with no complication. Patient transferred to PACU in stable condition. We explained to the patient thereafter that the patient had 2-vessel runoff but only 1 vessel, which is the peroneal artery, goes to the foot; so, the entire foot is supplied by his peroneal artery, and that was explained the him and his family. CIRO WHEAT DO [id number]
== END 2017-12-12 15:00 | disposition home or self-care (01) ==
LOC: JASU-SURG 08:37
PROVIDERS: ATTEND Surgery Vascular Surgery
PROC: B41DYZZ Fluoroscopy of Aorta and Bilateral Lower Extremity Arteries using Other Contrast (ICD-10-PCS; principal; 2017-12-12 10:30)
DX: I70.211 Atherosclerosis of native arteries of extremities with intermittent claudication, right leg (principal)
CPT/HCPCS: 36415; 76000-TC-FY; 80048; 94760; J1644

== ENCOUNTER 2020-07-06 13:06 | Emergency (ER) | payer BC ==
--- NOTE | 2020-07-06 14:06 | PDOC ---
History of Present Illness - General Chief Complaint: CVA/TIA Stated Complaint: WEAKNESS Time Seen by Provider: 07/06/20 13:30 - History of Present Illness Initial Comments: HPI Pt is a 70yo M with PMH CAD s/p CABG, stents, HTN, HLD, HIV on HAART (last VL undetectable) who presents with left arm weakness, generalized weakness, and SOB. Reports one episode of left arm weakness with tremors 2 weeks ago, lasting 30 seconds. Reports 4 week history of generalized weakness, SOB/near syncope of exertion, and unsteady gait/walks towards the right. Reports intermittent, sharp L lateral chest pain lasting minutes, non radiating, nonexertional, nonpleuritic. He has seen Dr. Fuentes for similar prior episodes of chest pain, told it was possibly a muscle spasm. States that he was given a B12 shot by his PCP for his generalized weakness, with no improvement. PCP: Gamal Cards: Gina PMH: see above PSH: open CABG Meds: see chart Allergies: quinapril (swelling) Review of Systems CONSTITUTIONAL: denies fever, chills, diaphoresis, generalized weakness, malaise, loss of appetite HEENT: denies rhinorrhea, nasal congestion, sore throat, visual changes CARDIOVASCULAR: reports chest pain, near-syncope/lightheadedness, peripheral edema; denies palpitations, irregular heart rate RESPIRATORY: reports SOB, SARMIENTO; denies cough, orthopnea, wheezing, hemoptysis GASTROINTESTINAL: denies abdominal pain, nausea, vomiting, diarrhea, constipation, melena, hematochezia GENITOURINARY: denies dysuria, frequency, urgency, hematuria, flank pain MUSCULOSKELETAL: denies myalgia, arthralgia, neck pain, back pain HEMATOLOGIC/IMMUNOLOGIC: denies easy bleeding, easy bruising ENDOCRINE: denies unexplained weight gain, unexplained weight loss NEUROLOGIC: reports: focal weakness, unsteady gait; denies headache, loss of consciousness, dizziness, unsteady gait, mental status changes, bladder or bowel incontinence SKIN: denies rash, itching, pallor Physical Exam General: awake, alert, fully oriented, in no acute distress, well developed, well nourished Head: normocephalic, atraumatic Eyes: PERRL, EOMI, anicteric sclera, conjunctiva clear ENT: Auricles normal inspection, hearing grossly normal, oropharynx clear without exudates, no nasal congestion, moist mucous membranes Neck: supple, normal ROM Lung: equal breath sounds b/l, CTA b/l, no crackles, wheezes; no distress, speaks full sentences Heart: RRR, normal S1, S2, no murmurs appreciated Abdomen: soft, non tender, normoactive bowel sounds, no guarding, rebound, masses Extremities: no edema, no erythema or tenderness, radial/DP/PT pulses 2+ and symmetric Neuro: Cranial nerves: Cranial nerves II through XII are intact, No abnormal nystagmus. Motor: The upper extremities are 5/5 in all muscle groups. The lower extremities are 5/5 in all muscle groups. No pronator drift. Sensation: Sensation is intact to light touch throughout. Cerebellar: -dysmetria, -dysdiadochokinesia Gait: Normal without ataxia Skin: warm, dry, normal skin turgor, capillary refill <2 seconds, no rashes or lesions noted MDM Pt is a 70yo M with PMH CAD s/p CABG, stents, HTN, HLD, HIV on HAART (last VL undetectable) who presents with left arm weakness, generalized weakness, and SOB. Vitals significant for: hypertensive DDx including but not limited to: ACS, PE, CHF Workup: CBC, CMP, Mg, cardiac profile, cxr, ekg CXR - no pneumothorax or pleural effusion. midline airway, appropriate vascular markings, no blunting of costophrenic angle, no cardiomegaly, as read by ED staff On further chart review, there is a V/Q scan with comment that patient has a history of pulmonary hypertension 07/06/20 15:26 Labs: no leukocytosis, no anemia 07/06/20 16:01 Labs: hypomagnesemia - will replete with 1g Mg 07/06/20 17:03 EKG: normal sinus rhythm, HR 75bpm, KS 190ms, QRS 92ms, QTc 453ms, new TWI in V3-V5 as compared to 09/[address]: no evidence of acute intracranial pathology; mild degree of diffuse cerebral atrophy 07/06/20 17:[address] Suarez, covering for Dr. Fuentes, who states that he had TWI in V2- V5 in EKG from 09/2019; similar complaints of exertional SOB and intermittent CP at that time per chart review. States that two negative troponins and outpatient follow up with Dr. Fuentes would be appropriate; if second trop is +, then he should be admitted. 07/06/20 19:[address] Manuel - pt can follow up outpatient for neuro Pt signed out to night team pending second trop Disposition Likely discharge Past History - Medical History Allergies/Adverse Reactions: Allergies Allergy/AdvReac Type Severity Reaction Status Date / Time quinapril HCl [From Accupril] Allergy Intermediate Verified 12/30/17 10:35 Home Medications: Ambulatory Orders Amlodipine Besylate [Norvasc -] 5 mg PO DAILY #0 tablet 05/29/13 Aspirin [ASA -] 81 mg PO HS #0 tab.chew 05/29/13 Abacavir/Dolutegravir/Lamivudi [Triumeq 600-50-300 mg Tablet] 1 each PO DAILY 02/11/17 Escitalopram Oxalate [Lexapro -] 10 mg PO DAILY 02/11/17 Gabapentin 300 mg PO BID 02/11/17 Pitavastatin Calcium [Livalo] 2 mg PO DAILY 02/11/17 Triamcinolone Acetonide 1 applic TP DAILY 02/11/17 Metoprolol Succinate [Toprol XL -] 25 mg PO DAILY 09/26/17 Tamsulosin HCl [Flomax -] 0.4 mg PO HS 09/26/17 Metoprolol Succinate [Toprol XL -] 25 mg PO HS #30 tab.sr.24h 09/30/17 Valsartan 320 mg PO DAILY #30 tablet 09/30/17 Pantoprazole Sodium [Protonix -] 20 mg PO BID 12/11/17 Anemia: No Asthma: No Cancer: No Cardiac Disorders: Yes (ASHD,PR) CVA: No COPD: No Dementia: No Diabetes: No GI Disorders: Yes (GERD;COLON ADENOMAS;DIVERTICULOSIS) Disorders: No HTN: Yes Hypercholesterolemia: Yes Kidney Stones: Yes Liver Disease: No (STAGE 1 STATOHEPATITIS ALCOHOLIC / ABDULLAHI 2007) Seizures: No Thyroid Disease: No - Surgical History Abdominal Surgery: (UMBILICAL HERNIA REPAIR) Appendectomy: Yes (LAP) Cardiac Surgery: Yes (7 CABG 2007;STENT 2001) Orthopedic Surgery: Yes (qasim knee replacements; RIGHT HIP REPLACEMENT) - Immunization History Immunization Up to Date: Yes - Psycho-Social/Smoking History Smoking Status: No Smoking History: Never smoked Have you smoked in the past 12 months: No Number of Cigarettes Smoked Daily: 0 If you are a former smoker, when did you quit?: 10yrs - Substance Abuse Hx (Audit-C & DAST Scrn) How often the patient has a drink containing alcohol: 2-4 times / month How often the patient has six or more drinks on one occasion: Never Score: In Men: 4 or > Positive; In Women: 3 or > Positive: 2 Screen Result (Pos requires Nsg. Audit-10AR): Negative In the last yr the pt used illegal drug/Rx for NonMed reason: No Score: Yes response is considered Positive: 0 Screen Result (Positive result requires Nsg. DAST-10): Negative *Physical Exam - Vital Signs Last Vital Signs Temp Pulse Resp BP Pulse Ox 98.8 F 77 18 130/73 98 07/06/20 13:21 07/06/20 13:21 07/06/20 13:21 07/06/20 13:21 07/06/20 13:21 Heart Score/ECG Review - History History: Slightly suspicious - Electrocardiogram EKG: Non specific repolarization disturbance - Age Age: >/= 65 - Risk Factors Risk Factors Heart Score: Yes Hx Hypercholesterolemia, Yes Hx Hypertension, Yes Positive family hx of cardiac disease Based on the list above the patient has:: >/=3 risk factors or Hx atherosclerotic disease - Troponin Troponin: </= normal limit - Score Heart Score - Total: 5 ED Treatment Course - LABORATORY CBC & Chemistry Diagram: 07/06/20 14:00 07/06/20 14:00 Discharge - Discharge Information Problems reviewed: Yes Clinical Impression/Diagnosis: Transient ischemic attack Chest pain Qualifiers: Chest pain type: unspecified Qualified Code(s): R07.9 - Chest pain, unspecified Condition: Stable Disposition: HOME - Follow up/Referral Referrals: Jose Yeung MD [Primary Care Provider] - Keshawn Fuentes MD [Staff Physician] - Joe Manuel MD [Staff Physician] - - Patient Discharge Instructions Patient Printed Discharge Instructions: DI for Chest Pain Additional Instructions: You were seen in the emergency department for left arm weakness and chest pain. In the ED, you were evaluated with blood work, electrocardiogram, and head CT. Your blood work was normal, but you had a low level of magnesium, which we treated. Your EKG was similar to the one from your visit with Dr. Fuentes. Your head CT did not show any signs of bleeding or injury. You do not appear to be an acute need for immediate hospitalization. You were advised to follow up with your primary care doctor within 1 week. You should follow up with Dr. Fuentes. Call tomorrow to schedule an appointment You were given a referral to Dr. Manuel. Call tomorrow to schedule appointment. You should tell them to add you to the waitlist of last minute cancellations - Dr. Manuel may be able to see you this week. Come back to the ER immediately with any new or worsening concerns, such as chest pain, worsening shortness of breath, facial drooping, slurred speech, new onset weakness, changes in your vision. Thank you for coming to the [facility] ER. We hope you feel better soon! - Post Discharge Activity
[2020-07-06 15:02] LABS: BASO % 0.8 % (0-2.0); EOS % 2.6 % (0-4.5); HEMOGLOBIN 15.6 GM/dL (11.7-16.9); LYMPH % 27.9 % (8-40); MCHC 33.8 g/dl (32.0-35.9); MEAN CELL VOLUME 106.4 fl (80-96); MEAN PLT VOLUME 8.7 fl (7.5-11.1); MONO % 9.8 % (3.8-10.2); NEUT % 58.9 % (42.8-82.8); PLATELET COUNT 155 K/MM3 (134-434); RBC 4.32 M/mm3 (4.00-5.60); RDW 15.1 % (11.9-15.9); WHITE BLOOD COUNT 7.6 K/mm3 (4.0-10.0)
[2020-07-06 15:34] LABS: ANISOCYTOSIS 2+; MACROCYTOSIS 0; PLATELET ESTIMATE DECREASED
--- NOTE | 2020-07-06 15:45 | PDOC ---
Documentation entered by Sridevi Cheema SCRIBE, acting as scribe for Saleem Cooley MD. Saleem Cooley MD: This documentation has been prepared by the lucaibeDeni Lincy, SCRIBE, under my direction and personally reviewed by me in its entirety. I confirm that the documentation accurately reflects all work, treatment, procedures, and medical decision making performed by me. Attending Attestation - Resident Resident Name: Margie Rocha - ED Attending Attestation I have performed the following: I have examined & evaluated the patient, The case was reviewed & discussed with the resident, I agree w/resident's findings & plan, Exceptions are as noted - HPI HPI: 07/06/20 14:36 The patient is a 70-year-old male with a past medical history significant for CAD s/p CABG and stents, HTN, HLD, HIV (on HAART) who presents to the emergency department with 4-week history of generalized weakness, associated with a brief episode of left arm weakness, shortness of breath and intermittent episode of nonradiating left-sided chest pain. - Physicial Exam PE: 07/06/20 15:42 EXAMINATION CONSTITUTIONAL: Well-appearing; well-nourished; in no apparent distress HEAD: Normocephalic; atraumatic EYES: PERRL; EOM intact ENMT: External appears normal; normal oropharynx NECK: Supple; non-tender; no cervical lymphadenopathy CARD: Normal S1, S2; no murmurs, rubs, or gallops RESP: Normal chest excursion with respiration; breath sounds clear and equal bilaterally; no wheezes, rhonchi, or rales ABD: Soft, non-distended; non-tender; no palpable organomegaly, no palpable hernias EXT: Normal ROM in all four extremities; non-tender to palpation; distal pulses intact SKIN: Warm, dry, no rash NEURO: Cranial nerves II through XII are grossly intact; motor is five 5 x 4; no pronation drift; [id number] normal bilaterally; there is no dysmetria; rapid alternating movements are intact bilaterally [id number] is normal bilaterally; - Medical Decision Making 07/06/20 15:43 70-year-old male with multiple comorbidities presents to the ER with persistent dyspnea on exertion over the past year which is increased in severity over the past several weeks. Patient also reports singular episode of left arm weakness and tremors 2 weeks prior which had resolved without any significant sequelae. In the ER, patient is awake and alert, well-appearing, in no distress. Neurological exam reveals no focal deficits. There are no cerebellar signs. Chest x-ray reveals no evidence of cardiomegaly/infiltrate or effusion. Bedside echocardiogram reveals a possible small anterior pericardial effusion but no evidence of tamponade. There is no evidence of pulmonary edema. I suspect patient's shortness of breath is related to his underlying pulmonary hy pertension. Will obtain CT of head to evaluate for possible lacunar infarct. Will discuss with neurology. Will reassess. Discharge - Discharge Information Problems reviewed: Yes Clinical Impression/Diagnosis: Transient ischemic attack - Follow up/Referral - Patient Discharge Instructions - Post Discharge Activity
[2020-07-06 16:00] LABS: ALBUMIN 3.6 g/dl (3.4-5.0); ALK PHOS 135 U/L (45-117); ANION GAP 7 MMOL/L (8-16); BLOOD UREA NITROGEN 15.1 mg/dL (7-18); CALCIUM 8.9 mg/dL (8.5-10.1); CHLORIDE 105 mmol/L (98-107); CO2 27 mmol/L (21-32); CREATININE 1.4 mg/dL (0.55-1.3); GLUCOSE,RANDOM 103 mg/dL (74-106); MAGNESIUM 1.5 mg/dL (1.8-2.4); POTASSIUM 4.4 mmol/L (3.5-5.1); SGOT/AST 64 U/L (15-37); SGPT/ALT 29 U/L (13-61); SODIUM 139 mmol/L (136-145); TOT PROT 7.4 g/dl (6.4-8.2)
[2020-07-06] MEDS ORDERED: MAGNESIUM 1GM/D5W - 1 GM/100 ML IVPB IVPB ONE (16:32)
[2020-07-06 19:44] VITALS: BP 120/80; PULSE 72; TEMP 98.6
--- NOTE | 2020-07-06 20:55 | PDOC ---
*Physical Exam - Vital Signs Last Vital Signs Temp Pulse Resp BP Pulse Ox 98.6 F 72 18 120/80 100 07/06/20 19:39 07/06/20 19:39 07/06/20 19:39 07/06/20 19:39 07/06/20 19:39 ED Treatment Course - LABORATORY CBC & Chemistry Diagram: 07/06/20 14:00 07/06/20 14:00 - ADDITIONAL ORDERS Additional order review: Laboratory Results 07/06/20 07/06/20 18:00 14:00 Sodium 139 Potassium 4.4 Chloride 105 Carbon Dioxide 27 Anion Gap 7 L BUN 15.1 Creatinine 1.4 H Est GFR (CKD-EPI)AfAm 58.17 Est GFR (CKD-EPI)NonAf 50.19 Random Glucose 103 Calcium 8.9 Magnesium 1.5 L Total Bilirubin 1.0 AST 64 H ALT 29 Alkaline Phosphatase 135 H Creatine Kinase 270 Creatine Kinase Index 1.3 CK-MB (CK-2) 3.6 Troponin I < 0.02 < 0.02 Total Protein 7.4 Albumin 3.6 07/06/20 14:00 RBC 4.32 MCV 106.4 H MCHC 33.8 RDW 15.1 D MPV 8.7 Neutrophils % 58.9 Lymphocytes % 27.9 Monocytes % 9.8 Eosinophils % 2.6 Basophils % 0.8 - Medications Given in the ED: ED Medications Discontinued Medications Generic Name Dose Route Start Last Admin Trade Name Freq PRN Reason Stop Dose Admin Magnesium Sulfate/Dextrose 1 100 mls @ 100 mls/hr 07/06/20 16:15 07/06/20 16:29 gm/ Miscellaneous IVPB 07/06/20 17:14 100 mls/hr ONCE ONE Administration Medical Decision Making - Medical Decision Making 07/06/20 20:55 previous team discussed with Dr. Suarez who is covering for dr. aguilera. will d/c if second troponin is negative with outpatient follow up with dr. aguilera Discharge - Discharge Information Problems reviewed: Yes Clinical Impression/Diagnosis: Transient ischemic attack Chest pain Qualifiers: Chest pain type: unspecified Qualified Code(s): R07.9 - Chest pain, unspecified Condition: Stable Disposition: HOME - Follow up/Referral Referrals: Jose Yeung MD [Primary Care Provider] - Keshawn Aguilera MD [Staff Physician] - Joe Manuel MD [Staff Physician] - - Patient Discharge Instructions Patient Printed Discharge Instructions: DI for Chest Pain Additional Instructions: You were seen in the emergency department for left arm weakness and chest pain. In the ED, you were evaluated with blood work, electrocardiogram, and head CT. Your blood work was normal, but you had a low level of magnesium, which we treated. Your EKG was similar to the one from your visit with Dr. Aguilera. Your head CT did not show any signs of bleeding or injury. You do not appear to be an acute need for immediate hospitalization. You were advised to follow up with your primary care doctor within 1 week. You should follow up with Dr. Aguilera. Call tomorrow to schedule an appointment You were given a referral to Dr. Manuel. Call tomorrow to schedule appointment. You should tell them to add you to the waitlist of last minute cancellations - Dr. Manuel may be able to see you this week. Come back to the ER immediately with any new or worsening concerns, such as chest pain, worsening shortness of breath, facial drooping, slurred speech, new onset weakness, changes in your vision. Thank you for coming to the [facility] ER. We hope you feel better soon! - Post Discharge Activity
--- NOTE | 2020-07-07 09:52 | EKG ---
Test Reason : Blood Pressure : / mmHG Vent. Rate : 075 BPM Atrial Rate : 075 BPM P-R Int : 190 ms QRS Dur : 092 ms QT Int : 406 ms P-R-T Axes : -06 -19 007 degrees QTc Int : 453 ms NORMAL SINUS RHYTHM ANTERIOR INFARCT , AGE UNDETERMINED ABNORMAL ECG WHEN COMPARED WITH ECG OF 26-SEP-2017 19:55, INVERTED T WAVES HAVE REPLACED NONSPECIFIC T WAVE ABNORMALITY IN ANTERIOR LEADS Confirmed by DELANEY LOUIS, OLIVE ([id number]) on 07/07/2020 9:52:20 AM Referred By: Confirmed By:OLIVE BALTAZAR MD
== END 2020-07-06 20:58 | disposition home or self-care (01) ==
LOC: JER 13:06
PROC: 3E033NZ Introduction of Analgesics, Hypnotics, Sedatives into Peripheral Vein, Percutaneous Approach (ICD-10-PCS; principal; 2020-07-06)
DX: G45.9 Transient cerebral ischemic attack, unspecified (principal)
CPT/HCPCS: 36415; 70450-TC; 71046-TC-FY; 80053; 82550; 82553; 83735; 84484; 85025; 93005; 93010; 99285-25

== ENCOUNTER 2021-07-10 13:55 | Emergency (ER) | payer OTHER ==
[2021-07-10 14:22] VITALS: TEMP 98.8; BMI 33.9
[2021-07-10] MEDS ORDERED: morphine CARPU-JECT 4 MG/1 ML DISP.SYRIN IVPUSH ONE ×2 (14:42→16:22)
[2021-07-10] MEDS ORDERED: morphine SULFATE 4 MG/ML VIAL ONE ×2 (14:56→17:10)
[2021-07-10] MEDS ORDERED: MORPHINE SULFATE 2 MG/ML VIAL ONE (14:56)
[2021-07-10] MEDS ORDERED: KETAMINE HCL 200 MG/20 ML VIAL IVPUSH ONE ×2 (17:04→18:37)
[2021-07-10] MEDS ORDERED: PROPOFOL 200 MG/20 ML VIAL IVPUSH ONE ×2 (17:04→18:37)
[2021-07-10] MEDS ORDERED: PROPOFOL 20 ML ONE (17:15)
[2021-07-10] MEDS ORDERED: KETAMINE HCL 200 MG/20 ML VIAL ONE (17:16)
[2021-07-10 17:37] LABS: BASO % 0.4 % (0-2.0); EOS % 1.9 % (0-4.5); HEMATOCRIT 43.3 % (35.4-49); HEMOGLOBIN 14.6 GM/dL (11.7-16.9); LYMPH % 16.5 % (8-40); MCH 34.8 pg (25.7-33.7); MCHC 33.8 g/dl (32.0-35.9); MEAN PLT VOLUME 9.3 fl (7.5-11.1); MONO % 7.1 % (3.8-10.2); NEUT % 74.1 % (42.8-82.8); PLATELET COUNT 164 10^3/uL (134-434); RDW 13.9 % (11.9-15.9); WHITE BLOOD COUNT 7.5 K/mm3 (4.0-10.0)
[2021-07-10 17:46] LABS: INR 0.95 (0.83-1.09); PROTHROMBIN TIME (PATIENT) 11.7 SEC (9.7-13.0)
[2021-07-10 17:49] LABS: ACTIVATED PTT 27.2 SECONDS (25.2-36.5)
[2021-07-10 18:00] LABS: ALBUMIN 3.2 g/dl (3.4-5.0); BLOOD UREA NITROGEN 13.2 mg/dL (7-18); CALCIUM 8.7 mg/dL (8.5-10.1); CHLORIDE 106 mmol/L (98-107); CO2 27 mmol/L (21-32); GLUCOSE,RANDOM 93 mg/dL (74-106); SODIUM 138 mmol/L (136-145)
[2021-07-10 18:01] LABS: CREATININE 1.2 mg/dL (0.55-1.3); SGOT/AST 71 U/L (15-37); SGPT/ALT 18 U/L (13-61)
[2021-07-10 18:03] LABS: BILIRUBIN,TOTAL 0.9 mg/dL (0.2-1); TOT PROT 7.5 g/dl (6.4-8.2)
[2021-07-10 18:04] LABS: ALK PHOS 146 U/L (45-117)
[2021-07-10 18:12] LABS: ANION GAP 5 MMOL/L (8-16)
[2021-07-10 19:33] LABS: CHLORIDE 107 mmol/L (98-107); SODIUM 137 mmol/L (136-145)
[2021-07-10 19:35] LABS: BLOOD UREA NITROGEN 12.2 mg/dL (7-18); CO2 26 mmol/L (21-32); GLUCOSE,RANDOM 105 mg/dL (74-106)
[2021-07-10 19:39] LABS: CREATININE 1.1 mg/dL (0.55-1.3)
[2021-07-10 19:48] LABS: ANION GAP 5 MMOL/L (8-16)
[2021-07-10 20:42] LABS: BLOOD UREA NITROGEN 12.7 mg/dL (7-18); CALCIUM 8.3 mg/dL (8.5-10.1)
[2021-07-10 20:46] LABS: CREATININE 1.1 mg/dL (0.55-1.3)
[2021-07-10 20:52] VITALS: PULSE 62
[2021-07-10] MEDS ORDERED: ONDANSETRON 4 MG TABLET PO ONE (20:55)
[2021-07-10] MEDS ORDERED: ONDANSETRON *ODT* 4 MG TABLET ONE (21:08)
[2021-07-10 22:37] VITALS: BP 163/82
== END 2021-07-10 21:20 | disposition home or self-care (01) ==
LOC: JER 13:55
PROC: 3E033GC Introduction of Other Therapeutic Substance into Peripheral Vein, Percutaneous Approach (ICD-10-PCS; principal; 2021-07-10)
PROC: 3E033NZ Introduction of Analgesics, Hypnotics, Sedatives into Peripheral Vein, Percutaneous Approach (ICD-10-PCS; 2021-07-10)
PROC: 3E033NZ Introduction of Analgesics, Hypnotics, Sedatives into Peripheral Vein, Percutaneous Approach (ICD-10-PCS; 2021-07-10)
PROC: 0SS9XZZ Reposition Right Hip Joint, External Approach (ICD-10-PCS; 2021-07-10)
DX: S73.004A Unspecified dislocation of right hip, initial encounter (principal); Y99.9 Unspecified external cause status
CPT/HCPCS: 36415; 73523-TC-FY; 80048; 80053; 85025; 85610; 85730; 99284-25

== ENCOUNTER 2021-07-18 17:02 | Emergency (ER) | payer OTHER ==
[2021-07-18] MEDS ORDERED: morphine CARPU-JECT 4 MG/1 ML DISP.SYRIN IVPUSH ONE (17:19)
[2021-07-18 17:24] VITALS: TEMP 97.8; BMI 33.9
[2021-07-18] MEDS ORDERED: LACTATED RINGERS SOLUTION 1000 ML INFUS.BAG IV ONE (17:30)
[2021-07-18] MEDS ORDERED: morphine SULFATE 4 MG/ML VIAL ONE (17:37)
[2021-07-18] MEDS ORDERED: KETAMINE HCL 200 MG/20 ML VIAL ONE (18:00)
[2021-07-18] MEDS ORDERED: PROPOFOL 20 ML ONE (18:00)
[2021-07-18] MEDS ORDERED: PROPOFOL 200 MG/20 ML VIAL IVPUSH ONE (18:28)
[2021-07-18] MEDS ORDERED: KETAMINE HCL 200 MG/20 ML VIAL IVPUSH ONE ×2 (18:28→18:32)
[2021-07-18 22:06] VITALS: BP 146/73; PULSE 68
== END 2021-07-18 20:02 | disposition home or self-care (01) ==
LOC: JER 17:02
PROC: 0SS9XZZ Reposition Right Hip Joint, External Approach (ICD-10-PCS; principal; 2021-07-18)
PROC: 3E033GC Introduction of Other Therapeutic Substance into Peripheral Vein, Percutaneous Approach (ICD-10-PCS; 2021-07-18)
PROC: 3E033NZ Introduction of Analgesics, Hypnotics, Sedatives into Peripheral Vein, Percutaneous Approach (ICD-10-PCS; 2021-07-18)
DX: S73.004A Unspecified dislocation of right hip, initial encounter (principal); Y99.9 Unspecified external cause status
CPT/HCPCS: 27266; 36415; 73502-TC-RT-FY; 73523-TC-FY; 80053; 85025; 85610; 85730; 86850; 86900; 86901; 96374; 96375; 99284-25; 99285-25

== ENCOUNTER 2022-03-21 15:36 | Observation (INO) | payer BC, OTHER ==
[2022-03-21] MEDS ORDERED: ACETAMINOPHEN 1000 MG/100 ML BAG IVPB ONE (18:03)
[2022-03-21] MEDS ORDERED: LIDOCAINE 5% TOPICAL PATCH TP ONE (18:04)
[2022-03-21] MEDS ORDERED: ACETAMINOPHEN INJECTION 100 ML IVPB ONE (19:26)
[2022-03-21] MEDS ORDERED: LIDOCAINE 5% TOPICAL PATCH ONE (19:26)
[2022-03-21 20:40] LABS: BASO % 0.5 % (0-2.0); EOS % 2.2 % (0-4.5); HEMATOCRIT 35.8 % (35.4-49); HEMOGLOBIN 11.8 GM/dL (11.7-16.9); LYMPH % 20.5 % (8-40); MCH 30.4 pg (25.7-33.7); MCHC 32.8 g/dl (32.0-35.9); MEAN CELL VOLUME 92.5 fl (80-96); MEAN PLT VOLUME 8.2 fl (7.5-11.1); MONO % 10.2 % (3.8-10.2); NEUT % 66.6 % (42.8-82.8); PLATELET COUNT 181 10^3/uL (134-434); RBC 3.87 M/mm3 (4.00-5.60); RDW 22.7 % (11.9-15.9); WHITE BLOOD COUNT 7.1 K/mm3 (4.0-10.0)
[2022-03-21 21:02] LABS: CALCIUM 8.9 mg/dL (8.5-10.1)
[2022-03-21 21:03] LABS: ALBUMIN 3.7 g/dl (3.4-5.0); BLOOD UREA NITROGEN 29.9 mg/dL (7-18); MAGNESIUM 1.9 mg/dL (1.8-2.4)
[2022-03-21 21:06] LABS: CREATININE 1.8 mg/dL (0.55-1.3); PHOSPHOROUS 3.7 mg/dL (2.5-4.9)
[2022-03-21 21:07] LABS: BILIRUBIN,TOTAL 0.5 mg/dL (0.2-1); TOT PROT 7.4 g/dl (6.4-8.2)
[2022-03-21 21:11] LABS: N-TERMINAL BNP 196.4 pg/ml (5-125)
[2022-03-21 21:25] LABS: ANISOCYTOSIS 1+; MACROCYTOSIS 1+; OVALOCYTE 1+
[2022-03-21] MEDS ORDERED: POLYETHYLENE GLYCOL (HEALTHYLAX) 3350 17 GM PACKET PO PRN (22:04)
[2022-03-21] MEDS ORDERED: oxyCODONE HCL 5 MG TABLET PO PRN (23:58)
[2022-03-21] MEDS ORDERED: DOCUSATE SODIUM 100 MG CAPSULE (FP) PO PRN (23:58)
[2022-03-22] MEDS ORDERED: SODIUM CHLORIDE 500 ML IV STA (00:15)
[2022-03-22] MEDS ORDERED: PATIENT'S OWN MEDICATION (NON-FORMULARY) (Alirocumab [Praluent Pen] 75 MG/ML Pen.Injctr) SQ SCH (00:15)
[2022-03-22] MEDS ORDERED: RANOLAZINE E.R. 500 MG TABLET (FP) ONE ×2 (00:49→22:03)
[2022-03-22] MEDS ORDERED: ACETAMINOPHEN 1000 MG/100 ML BAG IVPB PRN (01:00)
[2022-03-22] MEDS: SODIUM CHLORIDE 1,000 ML IV SCH (01:15)
[2022-03-22] MEDS: RANOLAZINE E.R. 1,000 MG TABLET (FP) PO SCH ×3 (01:15→22:44)
[2022-03-22] MEDS ORDERED: oxyCODONE HCL 5 MG TABLET ONE ×2 (01:47→12:40)
[2022-03-22] MEDS ORDERED: LIDOCAINE PATCH REMOVAL MC SCH (06:00)
[2022-03-22] MEDS ORDERED: HEPARIN NA (PORCINE) 5,000 UNITS/ML 1ML VIAL ONE (06:04)
[2022-03-22] MEDS: HEPARIN NA (PORCINE) 5,000 UNITS/ML 1ML VIAL SQ SCH ×3 (06:14→22:43)
[2022-03-22 07:32] LABS: BLOOD UREA NITROGEN 28.5 mg/dL (7-18); CALCIUM 8.2 mg/dL (8.5-10.1)
[2022-03-22 07:36] LABS: BASO % 0.5 % (0-2.0); CREATININE 1.4 mg/dL (0.55-1.3); EOS % 3.5 % (0-4.5); HEMATOCRIT 32.5 % (35.4-49); HEMOGLOBIN 10.7 GM/dL (11.7-16.9); LYMPH % 25.9 % (8-40); MCH 30.6 pg (25.7-33.7); MEAN CELL VOLUME 92.8 fl (80-96); MEAN PLT VOLUME 8.5 fl (7.5-11.1); MONO % 10.6 % (3.8-10.2); NEUT % 59.5 % (42.8-82.8); PLATELET COUNT 166 10^3/uL (134-434); PROTHROMBIN TIME (PATIENT) 11.5 SEC (9.7-13.0); RDW 22.3 % (11.9-15.9); WHITE BLOOD COUNT 5.3 K/mm3 (4.0-10.0)
[2022-03-22 07:38] LABS: ACTIVATED PTT 27.8 SECONDS (25.2-36.5)
[2022-03-22] MEDS ORDERED: TAMSULOSIN HCL 0.4 MG CAP ONE (08:10)
[2022-03-22] MEDS ORDERED: CALCIUM GLUCONATE IN NACL 1 GM/50 ML BAG IVPB ONE (08:15)
[2022-03-22] MEDS ORDERED: CALCIUM GLUCONATE 10% - 1,000 MG/10 ML VIAL ONE (08:26)
[2022-03-22] MEDS: TAMSULOSIN HCL 0.4 MG CAP PO SCH (08:30)
[2022-03-22] MEDS ORDERED: ESCITALOPRAM OXALATE 10 MG TABLET ONE (09:44)
[2022-03-22] MEDS ORDERED: metoPROLOL SUCCINATE 25 MG TAB.SR.24H (FP) ONE (09:44)
[2022-03-22] MEDS ORDERED: CLOPIDOGREL BISULFATE 75 MG TABLET (FP) ONE (09:44)
[2022-03-22] MEDS ORDERED: amLODIPine BESYLATE 5 MG TABLET (FP) ONE (09:44)
[2022-03-22] MEDS ORDERED: PANTOPRAZOLE 40 MG TABLET PO ONE (09:44)
[2022-03-22] MEDS: CLOPIDOGREL BISULFATE 75 MG TABLET (FP) PO SCH (09:50)
[2022-03-22] MEDS: amLODIPine BESYLATE 5 MG TABLET (FP) PO SCH (09:50)
[2022-03-22] MEDS: ALLOPURINOL 100 MG TABLET (FP) PO SCH (09:50)
[2022-03-22] MEDS: ESCITALOPRAM OXALATE 10 MG TABLET PO SCH (09:50)
[2022-03-22] MEDS: metoPROLOL SUCCINATE 25 MG TAB.SR.24H (FP) PO SCH (09:50)
[2022-03-22] MEDS: BICTEGRAV/EMTRICIT/TENOFOV (BIKTARVY) 50-200-25 MG TABLET PO SCH (09:50)
[2022-03-22] MEDS: PANTOPRAZOLE 40 MG TABLET PO SCH (09:50)
[2022-03-22] MEDS ORDERED: oxyCODONE HCL 5 MG TABLET PO PRN (10:41)
[2022-03-22] MEDS: oxyCODONE HCL 5 MG TABLET PO PRN ×2 (12:42→20:05)
[2022-03-22 19:23] VITALS: BMI 20.3
[2022-03-22] MEDS ORDERED: TAMSULOSIN HCL 0.4 MG CAP PO SCH (22:00)
[2022-03-23] MEDS: SODIUM CHLORIDE 1,000 ML IV SCH ×2 (00:15→00:35)
[2022-03-23] MEDS ORDERED: ACETAMINOPHEN 325 MG TABLET (FP) PO PRN (01:00)
[2022-03-23] MEDS: HEPARIN NA (PORCINE) 5,000 UNITS/ML 1ML VIAL SQ SCH (05:31)
[2022-03-23] MEDS: oxyCODONE HCL 5 MG TABLET PO PRN (05:31)
[2022-03-23 08:21] LABS: PH,URINE 5.5 (5.0-8.0); URINE APPEARANCE CLEAR; URINE BILIRUBIN NEGATIVE (NEGATIVE); URINE COLOR YELLOW; URINE GLUCOSE (UA) NEGATIVE (NEGATIVE); URINE KETONE NEGATIVE (NEGATIVE); URINE LEUK ESTERASE NEGATIVE (NEGATIVE); URINE NITRITE NEGATIVE (NEGATIVE); URINE PROTEIN NEGATIVE (NEGATIVE); URINE UROBILINOGEN 0.2 mg/dL (0.2-1.0)
[2022-03-23 08:24] LABS: BASO % 0.6 % (0-2.0); HEMATOCRIT 31.8 % (35.4-49); HEMOGLOBIN 11.2 GM/dL (11.7-16.9); MCH 32.8 pg (25.7-33.7); MEAN CELL VOLUME 93.7 fl (80-96); MEAN PLT VOLUME 8.6 fl (7.5-11.1); NEUT % 59.4 % (42.8-82.8); PLATELET COUNT 293 10^3/uL (134-434); RDW 22.6 % (11.9-15.9)
[2022-03-23 08:26] LABS: WHITE BLOOD COUNT 6.5 K/mm3 (4.0-10.0)
[2022-03-23] MEDS ORDERED: RANOLAZINE E.R. 500 MG TABLET (FP) ONE (08:27)
[2022-03-23] MEDS: TAMSULOSIN HCL 0.4 MG CAP PO SCH (08:44)
[2022-03-23 08:49] LABS: ALBUMIN 3.3 g/dl (3.4-5.0); CALCIUM 8.5 mg/dL (8.5-10.1)
[2022-03-23 08:50] LABS: BLOOD UREA NITROGEN 20.3 mg/dL (7-18)
[2022-03-23 08:52] LABS: CREATININE 1.1 mg/dL (0.55-1.3)
[2022-03-23 08:54] LABS: BILIRUBIN,TOTAL 0.5 mg/dL (0.2-1); TOT PROT 6.6 g/dl (6.4-8.2)
[2022-03-23] MEDS: CLOPIDOGREL BISULFATE 75 MG TABLET (FP) PO SCH (09:05)
[2022-03-23] MEDS: amLODIPine BESYLATE 5 MG TABLET (FP) PO SCH (09:05)
[2022-03-23] MEDS: ALLOPURINOL 100 MG TABLET (FP) PO SCH (09:05)
[2022-03-23] MEDS: ESCITALOPRAM OXALATE 10 MG TABLET PO SCH (09:05)
[2022-03-23] MEDS: metoPROLOL SUCCINATE 25 MG TAB.SR.24H (FP) PO SCH (09:05)
[2022-03-23] MEDS: RANOLAZINE E.R. 1,000 MG TABLET (FP) PO SCH (09:06)
[2022-03-23] MEDS: PANTOPRAZOLE 40 MG TABLET PO SCH (09:06)
[2022-03-23] MEDS: BICTEGRAV/EMTRICIT/TENOFOV (BIKTARVY) 50-200-25 MG TABLET PO SCH (09:06)
[2022-03-23] MEDS ORDERED: PATIENT'S OWN MEDICATION (NON-FORMULARY) (Alirocumab [Praluent Pen] 75 MG) SQ SCH (10:00)
[2022-03-23 10:07] VITALS: BP 133/71; PULSE 77; TEMP 98.1
[2022-03-23] MEDS ORDERED: SODIUM CHLORIDE 0.45% 1,000 ML IV SCH (13:30)
== END 2022-03-23 13:30 | disposition home or self-care (01) ==
LOC: JER 15:36 → JERBED 19:09 → INTOOBSV 19:09 → UNDOADMOB 19:09 → JERBED 03-22 10:23 → J4W 03-22 15:22 → JERBED 03-23 10:12 → J4W 03-23 10:12
PROVIDERS: ADMIT Hospitalist; ATTEND Internal Medicine
PROC: 3E033GC Introduction of Other Therapeutic Substance into Peripheral Vein, Percutaneous Approach (ICD-10-PCS; principal; 2022-03-23)
PROC: 3E0337Z Introduction of Electrolytic and Water Balance Substance into Peripheral Vein, Percutaneous Approach (ICD-10-PCS; 2022-03-23)
DX: R55 Syncope and collapse (principal); N17.9 Acute kidney failure, unspecified; I11.0 Hypertensive heart disease with heart failure; I25.10 Atherosclerotic heart disease of native coronary artery without angina pectoris; I50.32 Chronic diastolic (congestive) heart failure; I25.2 Old myocardial infarction; Z21 Asymptomatic human immunodeficiency virus [HIV] infection status; E87.5 Hyperkalemia; K21.9 Gastro-esophageal reflux disease without esophagitis; K70.10 Alcoholic hepatitis without ascites; Z95.0 Presence of cardiac pacemaker; Z95.5 Presence of coronary angioplasty implant and graft; W18.39XA Other fall on same level, initial encounter; Z91.81 History of falling; Y93.89 Activity, other specified; Y92.89 Other specified places as the place of occurrence of the external cause; E87.6 Hypokalemia; N20.0 Calculus of kidney
CPT/HCPCS: 0241U-QW; 36415; 70450-TC; 71045-TC-FY; 71101-TC-RT-FY; 71250-TC; 72125-TC; 76775-TC; 80048; 80053; 81003; 83735; 83880; 84100; 84443; 84484; 85025; 85610; 85730; 93005; 93010; 93306-TC; 96361; 96372; 96374; 96375; 96376; 97116-GP; 97161-GP; 99285-25; G0378; J1644

== ENCOUNTER 2022-04-26 12:25 | Inpatient (IN) | payer OTHER ==
[2022-04-26] MEDS ORDERED: morphine CARPU-JECT 4 MG/1 ML DISP.SYRIN IVPUSH ONE (16:36)
[2022-04-26] MEDS ORDERED: morphine SULFATE 4 MG/ML VIAL ONE (16:56)
[2022-04-26 17:56] LABS: BASO % 0.3 % (0-2.0); HEMATOCRIT 38.5 % (35.4-49); HEMOGLOBIN 12.9 GM/dL (11.7-16.9); LYMPH % 25.3 % (8-40); MCH 31.9 pg (25.7-33.7); MCHC 33.4 g/dl (32.0-35.9); MEAN CELL VOLUME 95.6 fl (80-96); MONO % 9.8 % (3.8-10.2); NEUT % 63.6 % (42.8-82.8); PLATELET COUNT 200 10^3/uL (134-434); RBC 4.03 M/mm3 (4.00-5.60); RDW 21.9 % (11.9-15.9); WHITE BLOOD COUNT 7.8 K/mm3 (4.0-10.0)
[2022-04-26 18:16] LABS: CREATININE 1.9 mg/dL (0.55-1.3)
[2022-04-26 18:17] LABS: BILIRUBIN,TOTAL 0.7 mg/dL (0.2-1); TOT PROT 7.9 g/dl (6.4-8.2)
[2022-04-26 18:49] LABS: ANISOCYTOSIS 2+; MACROCYTOSIS 1+; PLATELET ESTIMATE NORMAL
[2022-04-26] MEDS ORDERED: SODIUM CHLORIDE 0.9% 500 ML INFUS.BAG IV ONE (19:40)
[2022-04-26] MEDS ORDERED: SODIUM CHLORIDE 1,000 ML IV SCH (21:15)
[2022-04-26] MEDS ORDERED: ACETAMINOPHEN 1000 MG/100 ML BAG IVPB PRN (21:22)
[2022-04-27] MEDS ORDERED: HEPARIN NA (PORCINE) 5,000 UNITS/ML 1ML VIAL SQ SCH ×2 (06:00→22:00)
[2022-04-27 09:35] LABS: BASO % 0.3 % (0-2.0); EOS % 1.8 % (0-4.5); HEMATOCRIT 35.8 % (35.4-49); HEMOGLOBIN 12.2 GM/dL (11.7-16.9); LYMPH % 23.4 % (8-40); MCH 32.6 pg (25.7-33.7); MCHC 33.9 g/dl (32.0-35.9); MEAN PLT VOLUME 8.4 fl (7.5-11.1); MONO % 9.4 % (3.8-10.2); NEUT % 65.1 % (42.8-82.8); PLATELET COUNT 189 10^3/uL (134-434); RBC 3.73 M/mm3 (4.00-5.60); RDW 21.6 % (11.9-15.9); WHITE BLOOD COUNT 7.2 K/mm3 (4.0-10.0)
[2022-04-27 10:06] LABS: CALCIUM 8.4 mg/dL (8.5-10.1); MAGNESIUM 1.7 mg/dL (1.8-2.4)
[2022-04-27 10:08] LABS: ALBUMIN 3.5 g/dl (3.4-5.0); BLOOD UREA NITROGEN 25.7 mg/dL (7-18)
[2022-04-27 10:10] LABS: CREATININE 1.6 mg/dL (0.55-1.3)
[2022-04-27 10:11] LABS: PHOSPHOROUS 3.4 mg/dL (2.5-4.9); TOT PROT 6.8 g/dl (6.4-8.2)
[2022-04-27 10:13] LABS: BILIRUBIN,TOTAL 0.8 mg/dL (0.2-1)
[2022-04-27 12:29] LABS: PH,URINE 5.5 (5.0-8.0); URINE APPEARANCE CLEAR; URINE BILIRUBIN NEGATIVE (NEGATIVE); URINE COLOR DK YELLOW; URINE GLUCOSE (UA) NEGATIVE (NEGATIVE); URINE KETONE NEGATIVE (NEGATIVE); URINE LEUK ESTERASE NEGATIVE (NEGATIVE); URINE NITRITE NEGATIVE (NEGATIVE); URINE PROTEIN TRACE (NEGATIVE)
[2022-04-27] MEDS ORDERED: PATIENT'S OWN MEDICATION (NON-FORMULARY) (Alirocumab [Praluent Pen] 75 MG/ML Pen.Injctr) SQ SCH (15:00)
[2022-04-27] MEDS ORDERED: ASPIRIN 81 MG CHEWABLE TABLETS PO ONE (18:08)
[2022-04-27] MEDS ORDERED: ASPIRIN 325 MG TABLET ONE (18:12)
[2022-04-27 19:17] LABS: ALBUMIN 3.5 g/dl (3.4-5.0); CALCIUM 8.8 mg/dL (8.5-10.1)
[2022-04-27 19:18] LABS: BLOOD UREA NITROGEN 19.4 mg/dL (7-18)
[2022-04-27 19:21] LABS: CREATININE 1.2 mg/dL (0.55-1.3)
[2022-04-27 19:22] LABS: BILIRUBIN,TOTAL 0.9 mg/dL (0.2-1); TOT PROT 6.9 g/dl (6.4-8.2)
[2022-04-27] MEDS ORDERED: ACETAMINOPHEN 1000 MG/100 ML BAG IVPB PRN (20:37)
[2022-04-27] MEDS: traMADol HCL 50 MG TABLET PO PRN (20:54)
[2022-04-27] MEDS ORDERED: RANOLAZINE E.R. 500 MG TABLET (FP) ONE (21:22)
[2022-04-27] MEDS ORDERED: ALLOPURINOL 100 MG TABLET (FP) PO SCH (22:00)
[2022-04-27] MEDS ORDERED: SACUBITRIL/VALSARTAN 49 MG-51 MG TABLET PO SCH (22:00)
[2022-04-27] MEDS ORDERED: GABAPENTIN 300 MG CAPSULE PO SCH (22:00)
[2022-04-27] MEDS ORDERED: TAMSULOSIN HCL 0.4 MG CAP PO SCH (22:00)
[2022-04-27] MEDS ORDERED: RANOLAZINE E.R. 1,000 MG TABLET (FP) PO SCH (22:00)
[2022-04-27] MEDS: HEPARIN NA (PORCINE) 5,000 UNITS/ML 1ML VIAL SQ SCH (22:20)
[2022-04-27] MEDS: SACUBITRIL/VALSARTAN 49 MG-51 MG TABLET PO SCH (22:20)
[2022-04-27] MEDS: RANOLAZINE E.R. 1,000 MG TABLET (FP) PO SCH (22:20)
[2022-04-27] MEDS: GABAPENTIN 300 MG CAPSULE PO SCH (22:21)
[2022-04-27] MEDS: ALLOPURINOL 100 MG TABLET (FP) PO SCH (22:21)
[2022-04-27 23:21] VITALS: BMI 33.3
[2022-04-28] MEDS ORDERED: RANOLAZINE E.R. 500 MG TABLET (FP) ONE ×2 (09:04→21:24)
[2022-04-28] MEDS: FAMOTIDINE 20 MG TABLET PO SCH (09:12)
[2022-04-28] MEDS: ESCITALOPRAM OXALATE 10 MG TABLET PO SCH (09:13)
[2022-04-28] MEDS: GABAPENTIN 300 MG CAPSULE PO SCH ×2 (09:13→21:36)
[2022-04-28] MEDS: CLOPIDOGREL BISULFATE 75 MG TABLET (FP) PO SCH (09:14)
[2022-04-28] MEDS: SACUBITRIL/VALSARTAN 49 MG-51 MG TABLET PO SCH ×2 (09:14→21:36)
[2022-04-28] MEDS: ASPIRIN COATED 81 MG TABLET.EC PO SCH (09:15)
[2022-04-28] MEDS: TAMSULOSIN HCL 0.4 MG CAP PO SCH (09:15)
[2022-04-28] MEDS: EZETIMIBE 10 MG TABLET (FP) PO SCH (09:16)
[2022-04-28] MEDS: metoPROLOL SUCCINATE 25 MG TAB.SR.24H (FP) PO SCH (09:17)
[2022-04-28] MEDS: amLODIPine BESYLATE 5 MG TABLET (FP) PO SCH (09:17)
[2022-04-28] MEDS: ALLOPURINOL 100 MG TABLET (FP) PO SCH ×2 (09:18→21:36)
[2022-04-28] MEDS: BICTEGRAV/EMTRICIT/TENOFOV (BIKTARVY) 50-200-25 MG TABLET PO SCH (09:18)
[2022-04-28] MEDS: HEPARIN NA (PORCINE) 5,000 UNITS/ML 1ML VIAL SQ SCH ×2 (09:19→21:37)
[2022-04-28] MEDS: RANOLAZINE E.R. 1,000 MG TABLET (FP) PO SCH ×2 (09:19→21:40)
[2022-04-28] MEDS ORDERED: amLODIPine BESYLATE 5 MG TABLET (FP) PO SCH (10:00)
[2022-04-28] MEDS ORDERED: FAMOTIDINE 20 MG TABLET PO SCH (10:00)
[2022-04-28] MEDS ORDERED: metoPROLOL SUCCINATE 25 MG TAB.SR.24H (FP) PO SCH (10:00)
[2022-04-28] MEDS ORDERED: BICTEGRAV/EMTRICIT/TENOFOV (BIKTARVY) 50-200-25 MG TABLET PO SCH (10:00)
[2022-04-28] MEDS ORDERED: ESCITALOPRAM OXALATE 10 MG TABLET PO SCH (10:00)
[2022-04-28] MEDS ORDERED: EZETIMIBE 10 MG TABLET (FP) PO SCH (10:00)
[2022-04-28] MEDS: traMADol HCL 50 MG TABLET PO PRN ×2 (11:52→21:35)
[2022-04-28 19:51] LABS: INR 1.03 (0.83-1.09); PROTHROMBIN TIME (PATIENT) 11.8 SEC (9.7-13.0)
[2022-04-28 19:53] LABS: ACTIVATED PTT 28.5 SECONDS (25.2-36.5)
[2022-04-29] MEDS: TAMSULOSIN HCL 0.4 MG CAP PO SCH (08:40)
[2022-04-29] MEDS ORDERED: RANOLAZINE E.R. 500 MG TABLET (FP) ONE ×2 (09:57→21:02)
[2022-04-29] MEDS: metoPROLOL SUCCINATE 25 MG TAB.SR.24H (FP) PO SCH (10:02)
[2022-04-29] MEDS: ESCITALOPRAM OXALATE 10 MG TABLET PO SCH (10:02)
[2022-04-29] MEDS: RANOLAZINE E.R. 1,000 MG TABLET (FP) PO SCH ×2 (10:02→21:06)
[2022-04-29] MEDS: ASPIRIN COATED 81 MG TABLET.EC PO SCH (10:02)
[2022-04-29] MEDS: FAMOTIDINE 20 MG TABLET PO SCH (10:03)
[2022-04-29] MEDS: ALLOPURINOL 100 MG TABLET (FP) PO SCH ×2 (10:03→21:06)
[2022-04-29] MEDS: EZETIMIBE 10 MG TABLET (FP) PO SCH (10:03)
[2022-04-29] MEDS: GABAPENTIN 300 MG CAPSULE PO SCH ×2 (10:03→21:06)
[2022-04-29] MEDS: CLOPIDOGREL BISULFATE 75 MG TABLET (FP) PO SCH (10:03)
[2022-04-29] MEDS: HEPARIN NA (PORCINE) 5,000 UNITS/ML 1ML VIAL SQ SCH ×2 (10:03→21:06)
[2022-04-29] MEDS: amLODIPine BESYLATE 5 MG TABLET (FP) PO SCH (10:03)
[2022-04-29] MEDS: BICTEGRAV/EMTRICIT/TENOFOV (BIKTARVY) 50-200-25 MG TABLET PO SCH (10:03)
[2022-04-29] MEDS: SACUBITRIL/VALSARTAN 49 MG-51 MG TABLET PO SCH ×2 (10:04→21:06)
[2022-04-29] MEDS ORDERED: SODIUM CHLORIDE 500 ML IV STA (16:51)
[2022-04-29] MEDS: LACTATED RINGERS SOLUTION 1,000 ML/1,000 ML INFUS.BAG IV SCH (18:44)
[2022-04-29 19:17] LABS: ALBUMIN 3.5 g/dl (3.4-5.0); BILIRUBIN,TOTAL 0.3 mg/dL (0.2-1); BLOOD UREA NITROGEN 24.1 mg/dL (7-18); CALCIUM 9.1 mg/dL (8.5-10.1); CREATININE 1.2 mg/dL (0.55-1.3); MAGNESIUM 1.5 mg/dL (1.8-2.4); PHOSPHOROUS 3.7 mg/dL (2.5-4.9); TOT PROT 7.2 g/dl (6.4-8.2)
[2022-04-29] MEDS: traMADol HCL 50 MG TABLET PO PRN (21:11)
[2022-04-30] MEDS: LACTATED RINGERS SOLUTION 1,000 ML/1,000 ML INFUS.BAG IV SCH ×2 (04:59→14:44)
[2022-04-30] MEDS: HEPARIN NA (PORCINE) 5,000 UNITS/ML 1ML VIAL SQ SCH ×2 (06:29→14:38)
[2022-04-30] MEDS ORDERED: RANOLAZINE E.R. 500 MG TABLET (FP) ONE (08:54)
[2022-04-30] MEDS: ESCITALOPRAM OXALATE 10 MG TABLET PO SCH (09:00)
[2022-04-30] MEDS: RANOLAZINE E.R. 1,000 MG TABLET (FP) PO SCH (09:00)
[2022-04-30] MEDS: metoPROLOL SUCCINATE 25 MG TAB.SR.24H (FP) PO SCH (09:00)
[2022-04-30] MEDS: GABAPENTIN 300 MG CAPSULE PO SCH (09:00)
[2022-04-30] MEDS: ASPIRIN COATED 81 MG TABLET.EC PO SCH (09:01)
[2022-04-30] MEDS: EZETIMIBE 10 MG TABLET (FP) PO SCH (09:01)
[2022-04-30] MEDS: FAMOTIDINE 20 MG TABLET PO SCH (09:01)
[2022-04-30] MEDS: CLOPIDOGREL BISULFATE 75 MG TABLET (FP) PO SCH (09:02)
[2022-04-30] MEDS: ALLOPURINOL 100 MG TABLET (FP) PO SCH (09:02)
[2022-04-30] MEDS: amLODIPine BESYLATE 5 MG TABLET (FP) PO SCH (09:02)
[2022-04-30] MEDS: TAMSULOSIN HCL 0.4 MG CAP PO SCH (09:03)
[2022-04-30] MEDS: BICTEGRAV/EMTRICIT/TENOFOV (BIKTARVY) 50-200-25 MG TABLET PO SCH (09:39)
[2022-04-30] MEDS: SACUBITRIL/VALSARTAN 49 MG-51 MG TABLET PO SCH (09:40)
[2022-04-30 10:55] LABS: BASO % 0.5 % (0-2.0); EOS % 1.6 % (0-4.5); HEMATOCRIT 36.8 % (35.4-49); HEMOGLOBIN 12.3 GM/dL (11.7-16.9); LYMPH % 12.3 % (8-40); MCH 32.3 pg (25.7-33.7); MCHC 33.4 g/dl (32.0-35.9); MEAN CELL VOLUME 96.9 fl (80-96); MEAN PLT VOLUME 8.2 fl (7.5-11.1); MONO % 7.2 % (3.8-10.2); NEUT % 78.4 % (42.8-82.8); PLATELET COUNT 160 10^3/uL (134-434); RDW 20.7 % (11.9-15.9)
[2022-04-30 11:26] LABS: ALBUMIN 3.3 g/dl (3.4-5.0); BLOOD UREA NITROGEN 17.8 mg/dL (7-18)
[2022-04-30 11:28] LABS: CALCIUM 9.1 mg/dL (8.5-10.1)
[2022-04-30 11:29] LABS: MAGNESIUM 1.5 mg/dL (1.8-2.4); PHOSPHOROUS 3.2 mg/dL (2.5-4.9)
[2022-04-30 11:30] LABS: CREATININE 1.1 mg/dL (0.55-1.3)
[2022-04-30 11:31] LABS: BILIRUBIN,TOTAL 0.4 mg/dL (0.2-1); TOT PROT 6.5 g/dl (6.4-8.2)
[2022-04-30 11:48] LABS: ANISOCYTOSIS 0; MACROCYTOSIS 0
[2022-04-30 14:20] VITALS: BP 137/65; PULSE 75; TEMP 99.2
[2022-04-30] MEDS: PATIENT'S OWN MEDICATION (NON-FORMULARY) (Alirocumab [Praluent Pen] 75 MG) SQ SCH (15:23)
== END 2022-04-30 17:55 | disposition home health service (06) | DRG 560 ==
LOC: JER 12:25 → JERBED 16:44 → J6S 04-27 20:21
PROVIDERS: ADMIT Hospitalist; ATTEND Internal Medicine
DX: T84.030A Mechanical loosening of internal right hip prosthetic joint, initial encounter (principal); B20 Human immunodeficiency virus [HIV] disease; N17.9 Acute kidney failure, unspecified; I13.0 Hypertensive heart and chronic kidney disease with heart failure and stage 1 through stage 4 chronic kidney disease, or unspecified chronic kidney disease; I50.32 Chronic diastolic (congestive) heart failure; I25.10 Atherosclerotic heart disease of native coronary artery without angina pectoris; E78.5 Hyperlipidemia, unspecified; N18.9 Chronic kidney disease, unspecified; K21.9 Gastro-esophageal reflux disease without esophagitis; K57.90 Diverticulosis of intestine, part unspecified, without perforation or abscess without bleeding; D12.6 Benign neoplasm of colon, unspecified; E04.9 Nontoxic goiter, unspecified; K70.10 Alcoholic hepatitis without ascites; N40.0 Benign prostatic hyperplasia without lower urinary tract symptoms; K76.0 Fatty (change of) liver, not elsewhere classified; M10.9 Gout, unspecified; I25.2 Old myocardial infarction; R07.89 Other chest pain; W18.39XA Other fall on same level, initial encounter; Z95.1 Presence of aortocoronary bypass graft; Z96.653 Presence of artificial knee joint, bilateral; Z96.643 Presence of artificial hip joint, bilateral; Y83.8 Other surgical procedures as the cause of abnormal reaction of the patient, or of later complication, without mention of misadventure at the time of the procedure; Y92.098 Other place in other non-institutional residence as the place of occurrence of the external cause
CPT/HCPCS: 36415; 71045-TC-FY; 71275-TC; 73502-TC-RT-FY; 80053; 80061; 81003; 82962; 83735; 84100; 84300; 84484; 85025; 85379; 85610; 85730; 93005; 93010; 93970-TC; 97116-GP; 97162-GP; 99285-25; C9803-CS; J1644; Q9967; U0003; U0005